=== PATIENT | male | born 1965 | race Caucasian/White ===

== ENCOUNTER → 2017-02-20 | Outpatient (CLI) | payer OTHER ==
[~2017-02-20] VITALS: Ht 185.4 cm; Wt 88.5 kg
[~2017-02-20] MED LIST: ATIVAN1 MG PO; KEPPRA 500 MG500 M2 PO; LANSOPRAZOLE30 MG PO; LEVAQUIN 500 M500 M4 PO; LEVAQUIN 500 M500 MG PO; MIRALAX17 GM PO; NEXIUM40 MG PO; SINGULAIR 10 MG10 M1 PO; TYLENOL325 MG PO; UNICOMPLEX M TA1 TA1 PO
--- NOTE | ~2017-02-20 | P ---
[facility] [place] [place] [address] PROCEDURE REPORT Name: SHARON ETIENNE [id number] Admission: 02/20/17 Attend Phys: Alexis Gill Discharge: Date of : 69 Report #: [id number] THIS REPORT FOR: //name// CC: Alexis Ramirez MD DATE OF SERVICE: 02/20/2017 PROCEDURE PERFORMED: Upper endoscopy with PEG removal and replacement. 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 He is cared for by his mother and aunt, they have noticed increasing drainage around the PEG site itself; therefore, plan is for EGD with PEG replacement. PROCEDURE IN DETAIL: The risks and benefits of the procedure were explained to the patient's mother, those risks including but not limited to bleeding, perforation, the risk of sedation. He understood these risks and gave informed consent. Sedation was given using propofol per anesthesia. Next, using a standard SmartHubn upper endoscope, the scope was placed in the patient's mouth and advanced under direct vision through the esophagus, stomach and into the second portion of the duodenum. The esophagus was normal throughout. The GE junction was normal. Overall, the gastric mucosa was normal. The PEG tube bumper was noted to be in good position in the mid body of the stomach. The pylorus was normal and patent. The duodenal bulb, first and second portion were all normal. The scope was then brought back into the patient's stomach and the old PEG was removed through the peg fistula with traction. Next, a blue guidewire was inserted through the peg fistula and grasped with a snare through the endoscope and then the scope was brought back up to the patient's mouth. A new 24-Bengali PEG tube was secured to the blue guidewire and using a pull technique, it was put into position without difficulty. The scope was reintroduced into the patient's stomach. There was no evidence of bleeding after the PEG tube was placed. The bumper again was in good position. At this point, the scope was then withdrawn. The PEG tube was then secured to the anterior abdominal wall, the procedure was terminated. The patient tolerated the procedure well. IMPRESSION: Normal upper endoscopy status post removal of old PEG tube, replacement with new PEG tube today without difficulty. RECOMMENDATIONS: Okay to start using PEG tube at this time. [facility] [address] [place] [address] PROCEDURE REPORT Name: SHARON ETIENNE Room #: REG [facility] Curtis#: [id number] Admission: 02/20/17 Attend Phys: Alexis Gill Discharge: Date of : 69 Report #: [id number] Thank you for allowing me to participate in his care. By: 1100 1418 Alexis Naranjo MD /luda
== END ==
LOC: GI 08:47
DX: Z43.1 Encounter for attention to gastrostomy (principal); K21.9 Gastro-esophageal reflux disease without esophagitis; R56.9 Unspecified convulsions; Z87.820 Personal history of traumatic brain injury
CPT/HCPCS: 62110; 62900

== ENCOUNTER 2018-02-01 12:32 | Inpatient (IN) | payer OTHER ==
[~2018-02-01] VITALS: Ht 188 cm; Wt 93.0 kg
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
[2018-02-01] MEDS ORDERED: PREVACID30 MG PO (14:42)
[2018-02-01] MEDS ORDERED: KEFLEX500 M1 PO (14:43)
[2018-02-01 16:26] LABS: BE(vivo) 2.8 mmol/L (-2 to +3); HCO3 28.8 mmol/L (22.0-26.0); PCO2 49.1 mmHg (35.0-45.0); PO2 87.6 mmHg (80.0-100.0); pH 7.386 (7.360-7.450); sO2 96.5 % (92.0-98.0)
[2018-02-01 17:13] LABS: URINE BILIRUBIN NEGATIVE (Negative); URINE BLOOD NEGATIVE (Negative); URINE CLARITY CLEAR; URINE COLOR YELLOW; URINE GLUCOSE-RANDOM* NEGATIVE (Negative); URINE KETONES NEGATIVE (Negative); URINE LEUKOCYTES-REFLEX NEGATIVE (Negative); URINE NITRITE-REFLEX NEGATIVE (Negative); URINE PROTEIN (DIPSTICK) NEGATIVE (Negative); URINE SPECIFIC GRAVITY <= 1.005 (1.005-1.035); URINE UROBILINOGEN 0.2 E.U./dl (0.2-1.0)
[2018-02-01 19:04] LABS: HEMATOCRIT 47.2 % (42.0-52.0); HEMOGLOBIN 15.9 gm/dL (14.0-18.0); MCH 31.7 pg (26.0-34.0); MCHC 33.6 g/dL (28.0-37.0); MCV 94.2 fL (80.0-100.0); PLATELET COUNT 546 thou/uL (150-400); RBC 5.01 mil/uL (4.50-6.00); RDW 13.7 % (10.5-14.5); WBC 7.9 thou/uL (4.0-11.0)
[2018-02-01 19:17] LABS: ALBUMIN 2.6 g/dL (3.4-5.0); CALCIUM 9.6 mg/dL (8.5-10.1); CREATININE 0.4 mg/dL (0.7-1.3); MAGNESIUM 2.1 mg/dL (1.8-2.4); POTASSIUM 3.2 mmol/L (3.5-5.1); TOTAL BILIRUBIN 0.3 mg/dL (<0.1-1.0); TOTAL PROTEIN 8.2 g/dL (6.4-8.2)
[2018-02-01 19:28] LABS: ABSOLUTE NEUTROPHILS 5.1 thou/uL (1.4-8.2)
[2018-02-01 19:30] VITALS: BP 100/72
[2018-02-01 23:30] VITALS: BP 100/75
[2018-02-02 03:50] VITALS: BP 100/70; BP 110/70
[2018-02-02 06:48] LABS: HEMATOCRIT 44.7 % (42.0-52.0); HEMOGLOBIN 14.9 gm/dL (14.0-18.0); MCH 31.5 pg (26.0-34.0); MCHC 33.3 g/dL (28.0-37.0); MCV 94.5 fL (80.0-100.0); PLATELET COUNT 571 thou/uL (150-400); RBC 4.73 mil/uL (4.50-6.00); RDW 14.1 % (10.5-14.5); WBC 9.3 thou/uL (4.0-11.0)
[2018-02-02 06:57] LABS: CALCIUM 8.6 mg/dL (8.5-10.1); CREATININE 0.4 mg/dL (0.7-1.3); MAGNESIUM 1.8 mg/dL (1.8-2.4)
[2018-02-02 07:52] VITALS: BP 133/74
[2018-02-02 07:58] LABS: ABSOLUTE NEUTROPHILS 6.9 thou/uL (1.4-8.2); ATYPICAL LYMPHS 1 %
[2018-02-02 12:15] VITALS: BP 137/84
[2018-02-02 12:27] VITALS: BP 106/71
[2018-02-02 15:06] VITALS: BP 107/69
[2018-02-02 19:19] VITALS: BP 94/63
[2018-02-03 03:45] VITALS: BP 109/68
[2018-02-03 08:08] VITALS: BP 104/72
[2018-02-03 08:23] VITALS: BP 104/72
[2018-02-03 11:07] VITALS: BP 124/78
[2018-02-03 15:04] VITALS: BP 117/75
[2018-02-03 18:59] VITALS: BP 125/82
[2018-02-03 23:07] LABS: ADENOVIRUS Negative (Negative); INFLUENZA A Negative (Negative); INFLUENZA B Negative (Negative); METAPNEUMOVIRUS Negative (Negative); PARAINFLUENZA 1 Negative (Negative); PARAINFLUENZA 2 Negative (Negative); PARAINFLUENZA 3 Negative (Negative); RHINOVIRUS Negative (Negative); RSV A Negative (Negative); RSV B Negative (Negative)
[2018-02-04 03:28] VITALS: BP 111/81
[2018-02-04 06:07] LABS: ABSOLUTE NEUTROPHILS 11.2 thou/uL (1.4-8.2); BASOPHILS 0.7 % (0.0-2.0); EOSINOPHILS 2.2 % (0.0-3.0); HEMATOCRIT 46.7 % (42.0-52.0); HEMOGLOBIN 15.5 gm/dL (14.0-18.0); LYMPHOCYTES 10.9 % (24.0-44.0); MCH 31.4 pg (26.0-34.0); MCHC 33.1 g/dL (28.0-37.0); MCV 94.8 fL (80.0-100.0); MONOCYTES 6.2 % (1.0-8.0); PLATELET COUNT 551 thou/uL (150-400); RBC 4.93 mil/uL (4.50-6.00)
[2018-02-04 06:12] LABS: CALCIUM 8.9 mg/dL (8.5-10.1); CREATININE 0.4 mg/dL (0.7-1.3); POTASSIUM 3.7 mmol/L (3.5-5.1)
[2018-02-04 07:05] VITALS: BP 108/69
[2018-02-04 11:10] VITALS: BP 100/71
[2018-02-04 15:55] VITALS: BP 101/71
[2018-02-04 18:58] VITALS: BP 102/77
[2018-02-05 03:22] VITALS: BP 95/67
[2018-02-05 07:15] VITALS: BP 110/69
[2018-02-05 09:51] VITALS: BP 110/69
[2018-02-05 11:12] VITALS: BP 104/65
[2018-02-05] MEDS ORDERED: CEFEPIME 22 GM/100 M IV (11:33)
[2018-02-05] MEDS ORDERED: LEVAQUIN 7750 MG/152 IV (11:33)
== END 2018-02-05 16:01 | disposition home health service (06) | DRG 177 ==
LOC: RAD 12:32 → 3W 14:30
PROVIDERS: Family Medicine; Internal Medicine Pulmonary Disease; Nurse Practitioner
PROC: 05HB33Z Insertion of Infusion Device into Right Basilic Vein, Percutaneous Approach (ICD-10-PCS; principal; 2018-02-01)
DX: J15.1 Pneumonia due to Pseudomonas (principal); G93.40 Encephalopathy, unspecified; J96.10 Chronic respiratory failure, unspecified whether with hypoxia or hypercapnia; R40.3 Persistent vegetative state; K21.9 Gastro-esophageal reflux disease without esophagitis; G40.909 Epilepsy, unspecified, not intractable, without status epilepticus; Z93.0 Tracheostomy status; Z88.5 Allergy status to narcotic agent; Z88.0 Allergy status to penicillin; Z88.2 Allergy status to sulfonamides; Z93.1 Gastrostomy status; Z90.81 Acquired absence of spleen; Z90.49 Acquired absence of other specified parts of digestive tract
CPT/HCPCS: 10779; 27000

== ENCOUNTER → 2018-04-21 | Outpatient (CLI) | payer OTHER ==
[~2018-04-21] MED LIST changes: +CEFEPIME 22 GM/100 M IV; +KEFLEX500 M1 PO; +LEVAQUIN 7750 MG/152 IV; +PREVACID30 MG PO
== END ==
LOC: RAD 12:45
DX: J91.8 Pleural effusion in other conditions classified elsewhere (principal)

== ENCOUNTER → 2018-10-13 | Outpatient (CLI) | payer OTHER ==
--- NOTE | ~2018-10-13 | EKG ---
[address] [address] ELECTROCARDIOGRAM REPORT Name: SHARON ETIENNE Room #: REG CL Curtis#: [id number] Admission: 10/13/18 Attend Phys: Sami Ramirez MD Discharge: Date of : 69 Report #: [id number] THIS REPORT FOR: //name// [facility] Test Date: 2018-10-13 Test Time: 11:50:04 Pat Name: SHARON ETIENNE Department: Room: Gender: Tuber Machine Operator: Nancy CONTRERAS : 1965 Requested By: Sami Ramirez Order Number: [id number] MD: Sanjiv Moe Measurements Intervals [place] Rate: 77 P: 39 MA: 195 QRS: -21 QRSD: 94 T: 103 QT: 389 QTc: 441 Interpretive Statements Sinus rhythm Borderline left axis deviation Compared to ECG 03/19/2015 13:48:40 Electronically Signed On 10-13-2018 16:18:52 CUSTOMER EXPERIENCE ANALYST by Sanjiv Moe [email or web address] <ELECTRONICALLY SIGNED> By: Sanjiv Moe MD 10/13/18 1618 1150 1150 Sanjiv Moe MD /ABRAHAM
== END ==
LOC: RAD 09:04
DX: R91.8 Other nonspecific abnormal finding of lung field (principal); R40.3 Persistent vegetative state; Z93.0 Tracheostomy status

== ENCOUNTER 2018-10-16 13:16 | Emergency (ER) | payer OTHER ==
[~2018-10-16] VITALS: Ht 182.9 cm; Wt 102.1 kg
--- NOTE | ~2018-10-16 | EKG ---
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: KRISTAN : 1965 Requested By: Amalia Murcia Order Number: [id number] MD: Kwame Gandhi Measurements Intervals [place] Rate: 93 P: 33 ME: 187 QRS: -19 QRSD: 97 T: 152 QT: 319 QTc: 397 Interpretive Statements Sinus rhythm Borderline left axis deviation Nonspecific T abnrm, anterolateral leads Baseline wander in lead(s) V1 Compared to ECG 10/13/2018 11:50:04 No significant changes Electronically Signed On 10-17-2018 10:22:12 COATING MACHINE HELPER by Kwame Gandhi [email or web address] <ELECTRONICALLY SIGNED> By: Kwame Gandhi MD 10/17/18 1022 1342 41 Kwame Gandhi MD /ABRAHAM
[2018-10-16 15:20] LABS: BE(vivo) -0.4 mmol/L (-2 to +3); HCO3 24.9 mmol/L (22.0-26.0); PO2 VENOUS 55.5 mmHg (35.0-45.0)
[2018-10-16 15:21] LABS: HEMATOCRIT 45.8 % (42.0-52.0); HEMOGLOBIN 15.7 gm/dL (14.0-18.0); MCH 33.2 pg (26.0-34.0); MCHC 34.4 g/dL (28.0-37.0); MCV 96.6 fL (80.0-100.0); PLATELET COUNT 274 thou/uL (150-400); RBC 4.74 mil/uL (4.50-6.00); RDW 13.6 % (10.5-14.5)
[2018-10-16 15:29] LABS: ANION GAP 2 mmol/L (7-16); BUN 9 mg/dL (7-18); CALCIUM 9.4 mg/dL (8.5-10.1); CHLORIDE 95 mmol/L (98-107); CO2 31 mmol/L (21-32); CREATININE 0.5 mg/dL (0.7-1.3); GLUCOSE 94 mg/dL (74-106); POTASSIUM 3.7 mmol/L (3.5-5.1); SODIUM 128 mmol/L (136-145)
[2018-10-16 15:38] LABS: LIPASE 59 U/L (73-393); SGOT 16 U/L (15-37); SGPT 31 U/L (30-65); TOTAL BILIRUBIN 1.3 mg/dL (<0.1-1.0); TOTAL PROTEIN 8.1 g/dL (6.4-8.2); TROPONIN-I <0.06 ng/mL (<0.06)
[2018-10-16 16:03] LABS: ABSOLUTE NEUTROPHILS 7.6 thou/uL (1.4-8.2); ANISOCYTOSIS 1+
[2018-10-16 16:44] LABS: URINE BILIRUBIN NEGATIVE (Negative); URINE BLOOD NEGATIVE (Negative); URINE CLARITY CLEAR; URINE COLOR YELLOW; URINE GLUCOSE-RANDOM* NEGATIVE (Negative); URINE KETONES NEGATIVE (Negative); URINE LEUKOCYTES-REFLEX NEGATIVE (Negative); URINE PROTEIN (DIPSTICK) NEGATIVE (Negative); URINE UROBILINOGEN 0.2 E.U./dl (0.2-1.0)
[2018-10-16 16:49] LABS: URINE NITRITE-REFLEX POSITIVE (Negative)
[2018-10-16 16:55] LABS: CASTS None Seen /LPF (None Seen); SQUAMOUS 0-3 Few /LPF (0-3)
[2018-10-16 16:56] LABS: CALCIUM OXALATE 0-3 Few /LPF (None Seen); URINE RBC None Seen /HPF (0-2); URINE WBC-REFLEX 0-5 Rare /HPF (0-5)
[2018-10-16] MEDS ORDERED: LEVAQUIN 500 M500 MG PO (17:11)
[2018-10-16 21:39] VITALS: BP 129/78
== END 2018-10-16 18:55 | disposition home or self-care (01) ==
LOC: ER 13:16
PROVIDERS: Emergency Medicine; Nurse Practitioner Family
DX: N39.0 Urinary tract infection, site not specified (principal); K21.9 Gastro-esophageal reflux disease without esophagitis; Z88.5 Allergy status to narcotic agent; Z88.0 Allergy status to penicillin; Z88.2 Allergy status to sulfonamides; Z90.49 Acquired absence of other specified parts of digestive tract; Z90.81 Acquired absence of spleen

== ENCOUNTER → 2018-10-26 | Outpatient (CLI) | payer OTHER ==
--- NOTE | ~2018-10-26 | 2DMMODE ---
[facility] [address] [place] [address] 2 D/M-MODE ECHOCARDIOGRAM Name: SHARON ETIENNE Room #: REG [facility]#: [id number] Admission: 10/26/18 Attend Phys: Nato Melo Discharge: Date of : 69 Date of Service: 10/26/18 1641 Report #: [id number] THIS REPORT FOR: //name// APPROVED REPORT Study performed: 10/26/2018 15:11:40 EXAM: Comprehensive 2D, Doppler, and color-flow Echocardiogram Patient Location: Out-Patient Status: routine BSA: 2.15 HR: 77 bpm Rhythm: NSR Other Information Study Quality: Fair/ off axis windows. Not all measurements obtainable. Technically limited study due to patient confined to wheelchair. Indications Abnormal EKG. Hx: Tracheostomy, persistent vegetative state. 2D Dimensions IVSd: 13.59 (7-11mm) LVOT Diam: 22.94 (18-24mm) LVDd: 48.85 mm PWd: 13.42 (7-11mm) Ascending Ao: 34.97 (22-36mm) LVDs: 28.20 (25-40mm) Aortic Root: 37.26 mm Aortic Valve AoV Peak Prabhu.: 1.04 m/s AO Peak Gr.: 4.35 mmHg LVOT Max P.08 mmHg LVOT Max V: 0.72 m/s MIREYA Vmax: 2.86 cm2 Mitral Valve E/A Ratio: 1.1 MV Decel. Time: 283.25 ms MV E Max Prabhu.: 0.72 m/s MV A Prabhu.: 0.68 m/s MV PHT: 82.14 ms IVRT: 83.04 ms [facility] [address] [place] [address] 2 D/M-MODE ECHOCARDIOGRAM Name: SHARON ETIENNE Room #: REG [facility]#: [id number] Admission: 10/26/18 Attend Phys: Nato Melo Discharge: Date of : 69 Date of Service: 10/26/18 1641 Report #: [id number] Pulmonary Valve PV Peak Prabhu.: 1.09 m/s PV Peak Gr.: 4.71 mmHg Tricuspid Valve TR Peak Prabhu.: 2.22 m/s TR Peak Gr.: 19.79 mmHg Left Ventricle The left ventricle is normal size. There is normal LV segmental wall motion. Mild concentric left ventricular hypertrophy. Left ventricular systolic function is normal. LVEF is 60-65%. This study is not technically sufficient to allow evaluation of the LV diastolic function. Right Ventricle The right ventricle is normal size. The right ventricular systolic function is normal. Atria The left atrium size is normal. The right atrium size is normal. Aortic Valve The aortic valve is normal in structure. Trace aortic regurgitation. There is no aortic valvular stenosis. Mitral Valve The mitral valve is normal in structure. There is no mitral valve regurgitation noted. No evidence of mitral valve stenosis. Tricuspid Valve The tricuspid valve is normal in structure. Trace tricuspid regurgitation. Estimated PAP is 20mmHg plus the right atrial pressure. Pulmonic Valve The pulmonary valve is normal in structure. There is no pulmonic valvular regurgitation. Great Vessels The aortic root is normal in size. The ascending aorta is normal in size. The inferior vena cava is not well visualized. Pericardium [facility] [address] [place] [address] 2 D/M-MODE ECHOCARDIOGRAM Name: SHARON ETIENNE Room #: REG [facility] [id number] Admission: 10/26/18 Attend Phys: Nato Melo Discharge: Date of : 69 Date of Service: 10/26/181640 Report #: [id number] There is no pericardial effusion. <Conclusion> The left ventricle is normal size. LVEF is 60-65%. The aortic valve is normal in structure. Trace aortic regurgitation. The mitral valve is normal in structure. The tricuspid valve is normal in structure. Trace tricuspid regurgitation. Estimated PAP is 20mmHg plus the right atrial pressure. The pulmonary valve is normal in structure. There is no pericardial effusion. <ELECTRONICALLY SIGNED> By: Nato Quiles MD 10/26/18 164 40 1641 Nato Quiles MD /INF
== END ==
LOC: CV 08:05
DX: R94.31 Abnormal electrocardiogram [ECG] [EKG] (principal)

== ENCOUNTER → 2019-02-02 | Outpatient (CLI) | payer OTHER | LOC: RAD 12:46 | DX: J98.4 Other disorders of lung (principal); R09.89 Other specified symptoms and signs involving the circulatory and respiratory systems ==

== ENCOUNTER → 2019-02-17 | Outpatient (CLI) | payer OTHER ==
[~2019-02-17] MED LIST changes: +ALBUTEROL2.5 MG/31 INH; +LASIX 20 MG TAB20 MG PO; +PULMICORT0.5 MG/22 INH
== END ==
LOC: RAD 12:08
DX: R09.89 Other specified symptoms and signs involving the circulatory and respiratory systems (principal); R91.8 Other nonspecific abnormal finding of lung field; Z88.5 Allergy status to narcotic agent; Z88.2 Allergy status to sulfonamides; Z88.0 Allergy status to penicillin; Z93.0 Tracheostomy status

== ENCOUNTER 2019-02-21 07:45 | Inpatient (IN) | payer OTHER ==
[2019-02-21] VITALS (7 sets, daily range): BP systolic 102–132; BP diastolic 64–84
[~2019-02-21] VITALS: Ht 185.4 cm; Wt 102.1 kg
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
[~2019-02-21 07:45] MED LIST changes: -ALBUTEROL2.5 MG/31 INH; -LASIX 20 MG TAB20 MG PO; -PULMICORT0.5 MG/22 INH
[2019-02-21] MEDS ORDERED: LASIX 20 MG TAB20 MG PO (07:58)
[2019-02-21 08:08] LABS: URINE BILIRUBIN 3+ (Negative); URINE BLOOD NEGATIVE (Negative); URINE CLARITY CLEAR; URINE GLUCOSE-RANDOM* NEGATIVE (Negative); URINE KETONES TRACE (Negative); URINE LEUKOCYTES-REFLEX TRACE (Negative); URINE PROTEIN (DIPSTICK) 2+ (Negative); URINE SPECIFIC GRAVITY 1.015 (1.005-1.035)
[2019-02-21 08:14] LABS: HEMATOCRIT 50.4 % (42.0-52.0); HEMOGLOBIN 17.2 gm/dL (14.0-18.0); MCHC 34.1 g/dL (28.0-37.0); MCV 90.9 fL (80.0-100.0); PLATELET COUNT 266 thou/uL (150-400); RBC 5.54 mil/uL (4.50-6.00); RDW 15.5 % (10.5-14.5); WBC 26.6 thou/uL (4.0-11.0)
[2019-02-21 08:24] LABS: URINE NITRITE-REFLEX POSITIVE (Negative)
--- NOTE | 2019-02-21 08:24 | NUR ---
ADDISON IN LAB IS AT BEDSIDE
--- NOTE | 2019-02-21 08:24 | NUR ---
RT AT BEDSIDE
[2019-02-21 08:25] LABS: ICTOTEST (BILI CONFIRMATORY) Positive (Negative); URINE COLOR ORANGE
[2019-02-21 08:33] LABS: BACTERIA-REFLEX 1-9 Few /HPF (None Seen); COARSE GRANULAR CASTS 0-3 Few /LPF (None Seen); CRYSTALS None Seen /LPF (None Seen); SQUAMOUS None Seen /LPF (0-3); URINE RBC None Seen /HPF (0-2); URINE WBC-REFLEX 0-5 Rare /HPF (0-5)
[2019-02-21 08:55] LABS: ALBUMIN 2.7 g/dL (3.4-5.0); CALCIUM 8.5 mg/dL (8.5-10.1); CREATININE 0.4 mg/dL (0.7-1.3); POTASSIUM 3.7 mmol/L (3.5-5.1); TOTAL BILIRUBIN 8.6 mg/dL (<0.1-1.0); TOTAL PROTEIN 7.9 g/dL (6.4-8.2)
[2019-02-21 09:12] LABS: ABSOLUTE NEUTROPHILS 22.3 thou/uL (1.4-8.2); PLATELET ESTIMATE NORMAL
--- NOTE | 2019-02-21 09:36 | NUR ---
IV TEAM TEXTED FOR MIDLINE ACCESS
--- NOTE | 2019-02-21 10:50 | NUR ---
ATTEMPTED TO GIVE REPORT TO NATASHA VIA CARLENE ABDULLAHI; UNABLE TO HOLD ANY LONGER WILL CALL BACK JUVENCIO
--- NOTE | 2019-02-21 11:03 | NUR ---
CALLED CCU TO GIVE REPORT; ASKED FOR NATASHA VIA THALIA; SHE DID NOT ANSWER HER PHONE; THALIA WILL HAVE HER CALL ME BACK
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
[2019-02-21] MEDS ORDERED: ALBUTEROL2.5 MG/31 INH (13:13)
[2019-02-21] MEDS ORDERED: PULMICORT0.5 MG/22 INH (13:14)
--- NOTE | 2019-02-21 18:47 | NUR ---
VSS REMAINS NSR ST ON MONITER. LUNGS REMAIN COURSE, TRACH SHIELD ON FOR HUMIDIFIED AIR, SAT 35% 98%, REMAINS NON RESPONSIVE AT HOME, EYES OPEN OCCASIONALLY BUT NOT ON CAMMAND, DOES NOT FOLLOW COMMANDS. GRAPHITE DISK ASSEMBLER/ MOM AT BEDSIDE T MAX TEMP TODAY 100.2 AX WILL CONTINUE TO MONITER AND CARE FOR PTPER PLAN OF CARE
[2019-02-22 04:33] LABS: HEMATOCRIT 43.6 % (42.0-52.0); MCH 30.7 pg (26.0-34.0); MCHC 33.3 g/dL (28.0-37.0); RBC 4.74 mil/uL (4.50-6.00); RDW 15.2 % (10.5-14.5)
[2019-02-22 04:47] LABS: HEMOGLOBIN 14.5 gm/dL (14.0-18.0)
[2019-02-22 05:07] LABS: ALBUMIN 2.3 g/dL (3.4-5.0); CALCIUM 8.3 mg/dL (8.5-10.1); CREATININE 0.4 mg/dL (0.7-1.3); POTASSIUM 3.2 mmol/L (3.5-5.1); TOTAL BILIRUBIN 6.2 mg/dL (<0.1-1.0); TOTAL PROTEIN 7.2 g/dL (6.4-8.2)
[2019-02-22 05:09] VITALS: BP 106/72
[2019-02-22 07:50] VITALS: BP 110/69
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
[2019-02-22 12:13] VITALS: BP 111/70
[2019-02-22 17:46] VITALS: BP 104/71
--- NOTE | 2019-02-22 18:12 | NUR ---
RECEIVED PT FROM RECOVERY AFTER ATTEMPTED ERCP. VSS, LUNGS COURSE,REMAIN ON TRACH SHIELD WITH 35% O2, O2 SAT 98%, PT STILL WITH COPIOUS AMTS OF YELLOW SPUTUM, INLINE SUCTION NOW IN WITH NEW SHILEY TRACH X6 CUFFLESS, WITH DISPOSABLE INNER CANULA. PT REMAINS UNRESSONSIVE PRIOR TO PROCEDURE, CONDOM CATH INTACT REMAINS YELLOW URINE. WILL CONTINUE TO MONITER AND CARE FOR PT PER PLAN OF CARE
[2019-02-22 20:28] VITALS: BP 93/61
[2019-02-22 23:40] VITALS: BP 93/61
[2019-02-23 00:06] VITALS: BP 111/68
--- NOTE | 2019-02-23 03:20 | NUR ---
ASSUMED PT CARE AT 1900. PT SLEEPING, UNABLE TO FOLLOW COMMANDS OR ANSWER UESTIONS. MOTHER AT BEDSIDE AND STATES ITS HIS BASELINE. VITAL SIGNS STABLE, ASSESSMENT CHARTED. UNABLE TO VERBALIZE PAIN BUT SEEMED COMFORTABLE/PAIN FREE. Q2HR TURNS COMPLETED, SUCTIONING NEEDED. SUPPOSITORY GIVEN PER MOM'S REQUEST. CLOSE TO NURSING STATION, FREQUENT ROUNDING. NPO MAINTAINED, MOUTH CARE PROVIDED. FOLLOWING NURSING PLAN OF CARE. WILL CONTINUE TO MONITOR.
[2019-02-23 05:43] VITALS: BP 101/56
[2019-02-23 05:50] LABS: HEMATOCRIT 40.3 % (42.0-52.0); HEMOGLOBIN 13.2 gm/dL (14.0-18.0); MCH 30.6 pg (26.0-34.0); MCHC 32.9 g/dL (28.0-37.0); MCV 93.1 fL (80.0-100.0); RBC 4.32 mil/uL (4.50-6.00); RDW 15.1 % (10.5-14.5); WBC 10.7 thou/uL (4.0-11.0)
[2019-02-23 06:33] LABS: ALBUMIN 2.1 g/dL (3.4-5.0); CALCIUM 8.2 mg/dL (8.5-10.1); CREATININE 0.3 mg/dL (0.7-1.3); TOTAL BILIRUBIN 4.2 mg/dL (<0.1-1.0); TOTAL PROTEIN 6.5 g/dL (6.4-8.2)
[2019-02-23 09:07] LABS: INR 1.3; PROTIME 13.3 Seconds (9.3-11.4)
[2019-02-23 11:00] VITALS: BP 108/72
[2019-02-23 15:06] VITALS: BP 99/57
--- NOTE | 2019-02-23 17:33 | NUR ---
ASSUMED CARE OF PT AT SHIFT CHANGE. ASSESSMENTS CHARTED. IV MEDS GIVEN PER JAN, PT REMAINS NPO PER PROVIDER ORDERS. PT UNABLE TO VOICE, AWAKE, BUT NO RESPONSIVE. MOTHER VERY INVOLVED WITH CARE AND AT BEDSIDE THROUGHOUT DAY. VSS, AFEBRILE, O2 SATS WNL WITH T TUBE CONNECTED TO TRACH. SUCTIONED BY RESPIRATORY AND NEEDED. PROCEDURE SCHEDULED TODAY POSTPONED PER GI. FREQUENT CHECKS ON PT, IN NO APPARENT PAIN OR DISTRESS. WILL CONTINUE TO MONITOR AND FOLLOW POC.
[2019-02-23 19:34] VITALS: BP 84/55
[2019-02-23 22:21] VITALS: BP 84/55
[2019-02-24] VITALS (7 sets, daily range): BP systolic 85–100; BP diastolic 54–63
--- NOTE | 2019-02-24 04:08 | NUR ---
ASSUMED PT CARE AT 1900. PT UNABLE TO ANSWER QUESTIONS. BASELINE MOM MENTIONED. MOTHER AT BEDSIDE THROUGH OUT THE NIGHT. VITAL SIGNS STABLE, ASSESSMENT CHARTED. SUNCTIONING NEEDED. Q2-3 TURNS COMPLETED. BATH PROVIDED. RESTED WELL THROUGH THE NIGHT. A FEW COUGHING SPELLS WITH CONGESTION. SUNCTIONING HELPED. PROGRESSING TOWARD PLAN OF CARE. WILL CONTINUE TO MONITOR.
[2019-02-24 05:49] LABS: HEMATOCRIT 39.9 % (42.0-52.0); HEMOGLOBIN 13.5 gm/dL (14.0-18.0); MCHC 33.9 g/dL (28.0-37.0); MCV 91.6 fL (80.0-100.0); RBC 4.36 mil/uL (4.50-6.00); RDW 15.3 % (10.5-14.5); WBC 6.7 thou/uL (4.0-11.0)
[2019-02-24 06:00] LABS: ALBUMIN 2.1 g/dL (3.4-5.0); CREATININE 0.3 mg/dL (0.7-1.3); POTASSIUM 3.6 mmol/L (3.5-5.1); TOTAL BILIRUBIN 2.7 mg/dL (<0.1-1.0); TOTAL PROTEIN 6.5 g/dL (6.4-8.2)
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
--- NOTE | 2019-02-24 15:22 | NUR ---
FAXED CLINICAL UPDATE TO [facility]. HAS BEEN ON SERVICE WITH THEM SALON SUPERVISOR. DCP TO FOLLOW.
--- NOTE | 2019-02-24 18:14 | NUR ---
ASSUMED CARE OF PT AT SHIFT CHANGE. ASSESSMENTS CHARTED. MEDS GIVEN PER JAN. PT ALERT AND ORIENTED. VSS- BP RUN LOW, MAP >65. PT AWAKE THROUGHOUT DAY. NON VERBAL, MOTHER AT BEDSIDE THROUGHOUT DAY. PT IN NO APPARENT PAIN OR DISTRESS. FREQUENT CHECKS PERFORMED ON PT. AT APPROX 1615 PT SOUNDED MORE COARSE UPON LUNG ASSESSMENT, BROWN WALTERS WAS ASKED TO LISTEN/ASSESS, SUCTION PERFORMED, BLOCKAGE NOTICED WHILE SUCTIONING, ABLE TO SUCTION LARGE AMOUNT OF MUCUS. PT DESATTED TO HIGH 80S, RECOVERED AFTER SUCTIONING FINISHED. PT ABLE TO COUGH AND GET MORE SECRETIONS, SUCTIONING ASSISTANCE PROVIDED. PT CURRENTLY RESTING IN BED IN NO DISTRESS, O2 SATS WNL. CONTINUING TO MONITOR AND FOLLOW POC.
[2019-02-25 02:43] LABS: HEMATOCRIT 40.5 % (42.0-52.0); HEMOGLOBIN 13.7 gm/dL (14.0-18.0); MCH 30.8 pg (26.0-34.0); MCHC 33.7 g/dL (28.0-37.0); MCV 91.4 fL (80.0-100.0); RBC 4.43 mil/uL (4.50-6.00); RDW 15.3 % (10.5-14.5); WBC 6.3 thou/uL (4.0-11.0)
[2019-02-25 02:57] LABS: ALBUMIN 2.1 g/dL (3.4-5.0); DIRECT BILIRUBIN 1.3 mg/dL (<0.1-0.3); TOTAL BILIRUBIN 1.9 mg/dL (<0.1-1.0); TOTAL PROTEIN 6.5 g/dL (6.4-8.2)
--- NOTE | 2019-02-25 03:55 | NUR ---
ASSUMED PT CARE AT 1900. PT MORE AWAKE. VITAL SIGNS STABLE, ASSESSMENT CHARTED. SUCTIONING NEEDED. TURNS TOLERATED. RESTED WELL THROUGH THE NIGHT. PROGRESSING TOWARD PLAN OF CARE. WILL CONTINUE TO MONITOR.
[2019-02-25 04:52] VITALS: BP 102/55
[2019-02-25 08:53] VITALS: BP 98/62
[2019-02-25 12:00] VITALS: BP 91/62
[2019-02-25 12:36] VITALS: BP 107/57
--- NOTE | 2019-02-25 14:48 | NUR ---
NOTIFIED ROSEMARIE IN ADM. AT [facility] THAT PT. POSS. WILL DC OVER THE WEEKEND. IF PT DISCHARGES FAX DC ORDERS/SUMMARY TO [phone] AND CALL [phone] LET THEM KNOW PT. DISCHARGED.
--- NOTE | 2019-02-25 16:06 | NUR ---
VASCULAR TEAM ROUNDING, CENTRAL LINE REMAINS APPROPRIATE DUE TO LACK OF VESSELS,PT IS CONTRACTED , IV FLUIDS AND ANTIBIOTICS CONTINUE.
--- NOTE | 2019-02-25 16:36 | NUR ---
PT CARE ASSUMED APPROX 0700. PT NONRESPONSIVE AT BASELINE. OPENS EYES SPONTANEOUSLY AND LOCALIZES TO STIMULI TO FACE. PT A QUAD, NO PURPOSEFUL MOVEMENT IN ANY EXTREMITIES. PT MOTHER AT BEDSIDE MOST OF SHIFT AND HAS REFUSED TURNS FOR THE PT. DRs ARE AWARE. VSS. TUBE FEEDING RESTARTED PER TITRATION ORDER. PT CANNOT ADVANCE AT THIS TIME. GI RADIO FREQUENCY ENGINEER GAVE ORDERS TO RESTART TUBE FEEDING AT GOAL RATE IN THE AM. IVF REMAIN IN POC. IV ABT TRANSITIONED TO PT. PT READIED FOR POTENTIAL DISCHARGE IN AM. CERTIFIED REGISTERED NURSE PRACTITIONER REVIEWED WITH THIS NURSE. MOTHER NO LONGER AT BEDSIDE BUT PRIOR TO LEAVING DENIES QUESTIONS AND CONCERS REGARDING POC AND DISCHARGE. NO DISTRESS NOTED.
[2019-02-25 17:00] VITALS: BP 105/53
[2019-02-25 20:11] VITALS: BP 99/63
--- NOTE | 2019-02-25 23:40 | NUR ---
PT RESTING IN NO ACUTE DISTRESS.VSS.NO CONCERNS AT THIS TIME.
--- NOTE | 2019-02-26 03:48 | NUR ---
RECEIVED PT'S CARE AROUND 2333; PT. ON BED; NO RELATIVE AT THE BED SIDE; BY REPORT, PT'S MOTHER REFUSED TURNING; PT. RESTING DURING MIDNIGHT ASSESSMENT; NO APPARENT PAIN; O2 SAT ABOVE 95%; FREQUENTLY ROUNDING; ASSESSMENT CHARGED; FOLLOWING POC; WILL PASS ON REPORT.
[2019-02-26 04:26] VITALS: BP 100/66
[2019-02-26 07:30] VITALS: BP 100/58
[2019-02-26 11:50] VITALS: BP 124/70
[2019-02-26] MEDS ORDERED: CIPRO500 MG PER TUBE (11:51)
[2019-02-26 12:26] VITALS: BP 91/62
--- NOTE | 2019-02-26 18:14 | NUR ---
ASSUMED CARE OF PATIENT AT 0700. ASSESSMENT CHARTED. MOTHER AT BEDSIDE FOR ENTIRETY OF DAY. 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 ALL MEDS AND FEEDING GIVEN THROUGH PEG TUBE. PATIENT HAS A CONDOM CATHETER IN PLACE WHICH IS ONLY TOUCHED BY THE MOTHER, PER THE MOTHER. PATIENT'S BLOOD SUGARS CHECKED Q 6 HOURS. PATIENT D/C PER HOSPITALIST. TELE AND IV DISCONTINUED. PRESSURE HELD ON RIGHT JUGULAR FOR 5 MINUTES AND TIP INTACT. PATIENT [facility] AT 1245 TO HIS HOME WHERE HE IS CARED FOR BY HIS MOTHER AND AUNT. PATIENT'S MOTHER STATES THAT THE PATIENT HAS IMPROVED GREATLY FROM THE TIME HE WAS ADMITTED. ALL PAPERWORK FAXED TO [facility].
--- NOTE | 2019-02-28 14:10 | EEG ---
[facility] [place] [address] [place] [address] ELECTROENCEPHALOGRAM Name: SHARON ETIENNE Room #: 217-P [facility] IN M.R.#: [id number] ������������������ Admission: 02/21/19 ������������������ Attend Phys: Suki Duran MD Discharge: 02/26/19 ������������������ Date of : 69 Report #: [id number] ����������������������������������������������������������������� [id number] THIS REPORT FOR: //name// CC: Suki Ramirez DATE OF SERVICE: 02/21/2019 This patient is being evaluated for the possibility of seizure. EEG was done by placing the electrode by standard 10-20 system of electrode placement. Both referential and sequential montages were used for recording. Background activity in this patient's EEG is about 8 Hz and 30 microvolts. Background activity is slow throughout the record. Photic stimulation is unremarkable. IMPRESSION: This patient's electroencephalogram does not demonstrate any active epileptiform activity. However, the electroencephalogram is slow and poorly formed. There is a nonspecific abnormality, which can occur with encephalopathy, effect of psychotropic medication, dementia, etc. It might be mentioned that electroencephalogram can be normal in a patient with seizure disorder in a significant percentage of the patients. If clinical doubt continues to exist about seizures, then a trial with anticonvulsants can be done. Electroencephalogram still has a lot of artifact and sometime, it looks like there may be some epileptiform activity in the right frontal area. However, the patient also had apparently craniotomy there and that can give rise to breach rhythm. Thank you very much for this referral. ���������������������������������������� <ELECTRONICALLY SIGNED> ���������������������������������������� By: Vu Wiley MD ��������������������������������������������� 02/28/19 1410 1847 99 Vu Wiley MD /nt
== END 2019-02-26 13:26 | disposition home health service (06) | DRG 871 ==
LOC: ER 07:45 → EROBS 09:32 → 2N 09:32
PROVIDERS: Emergency Medicine; Hospitalist; Internal Medicine Gastroenterology; Radiology Vascular & Interventional Radiology; ADMIT Internal Medicine
PROC: 0FJB8ZZ Inspection of Hepatobiliary Duct, Via Natural or Artificial Opening Endoscopic (ICD-10-PCS; principal; 2019-02-22)
PROC: 0DJ08ZZ Inspection of Upper Intestinal Tract, Via Natural or Artificial Opening Endoscopic (ICD-10-PCS; principal; 2019-02-22)
DX: A41.9 Sepsis, unspecified organism (principal); K85.90 Acute pancreatitis without necrosis or infection, unspecified; J18.9 Pneumonia, unspecified organism; K83.1 Obstruction of bile duct; G82.50 Quadriplegia, unspecified; J96.20 Acute and chronic respiratory failure, unspecified whether with hypoxia or hypercapnia; E46 Unspecified protein-calorie malnutrition; G40.209 Localization-related (focal) (partial) symptomatic epilepsy and epileptic syndromes with complex partial seizures, not intractable, without status epilepticus; K22.10 Ulcer of esophagus without bleeding; N39.0 Urinary tract infection, site not specified; K83.09 Other cholangitis; E66.9 Obesity, unspecified; E87.6 Hypokalemia; K21.0 Gastro-esophageal reflux disease with esophagitis; K29.70 Gastritis, unspecified, without bleeding; K29.80 Duodenitis without bleeding; R65.20 Severe sepsis without septic shock; Z87.11 Personal history of peptic ulcer disease; Z68.29 Body mass index [BMI] 29.0-29.9, adult; Z87.820 Personal history of traumatic brain injury; Z98.2 Presence of cerebrospinal fluid drainage device; Z93.0 Tracheostomy status; Z90.49 Acquired absence of other specified parts of digestive tract; Z90.81 Acquired absence of spleen; Z93.1 Gastrostomy status; Z79.899 Other long term (current) drug therapy; Z88.5 Allergy status to narcotic agent; Z88.0 Allergy status to penicillin; Z88.2 Allergy status to sulfonamides
CPT/HCPCS: 10081; 62110; 62900; 70005

== ENCOUNTER 2019-09-09 15:56 | Inpatient (IN) | payer OTHER ==
[~2019-09-09] VITALS: Ht 185.4 cm; Wt 100.7 kg
[2019-09-09 15:56] VITALS: BP 115/68
[~2019-09-09 15:56] MED LIST changes: +ALBUTEROL2.5 MG/31 INH; +CIPRO500 MG PER TUBE; +LASIX 20 MG TAB20 MG PO; +PULMICORT0.5 MG/22 INH
[2019-09-09 17:11] VITALS: BP 106/66; BP 111/61; BP 113/63; BP 114/61; BP 97/56
[2019-09-09 17:16] LABS: HEMATOCRIT 44.5 % (42.0-52.0); HEMOGLOBIN 14.6 gm/dL (14.0-18.0); MCH 31.9 pg (26.0-34.0); MCHC 32.9 g/dL (28.0-37.0); MCV 97.1 fL (80.0-100.0); RBC 4.58 mil/uL (4.50-6.00); RDW 14.1 % (10.5-14.5); WBC 13.2 thou/uL (4.0-11.0)
[2019-09-09 17:27] LABS: CALCIUM 8.9 mg/dL (8.5-10.1); CREATININE 0.4 mg/dL (0.7-1.3); POTASSIUM 3.8 mmol/L (3.5-5.1)
[2019-09-09 17:29] LABS: APTT 29.4 Seconds (24.5-32.8); INR 1.1; PROTIME 11.2 Seconds (9.3-11.4)
[2019-09-09 18:07] LABS: ALBUMIN 3.1 g/dL (3.4-5.0); DIRECT BILIRUBIN 0.2 mg/dL (<0.1-0.3); TOTAL BILIRUBIN 0.8 mg/dL (<0.1-1.0); TOTAL PROTEIN 7.3 g/dL (6.4-8.2)
[2019-09-09 19:23] VITALS: BP 103/53; BP 80/53; BP 85/55; BP 92/54; BP 93/53; BP 95/54
[2019-09-09 19:47] LABS: BE(vivo) 0.5 mmol/L (-2 to +3); HCO3 24.2 mmol/L (22.0-26.0); PO2 328.7 mmHg (80.0-100.0); pH 7.445 (7.360-7.450); sO2 99.8 % (92.0-98.0)
[2019-09-09 20:06] LABS: HEMATOCRIT 41.6 % (42.0-52.0); HEMOGLOBIN 13.8 gm/dL (14.0-18.0); MCH 32.2 pg (26.0-34.0); MCHC 33.3 g/dL (28.0-37.0); MCV 96.9 fL (80.0-100.0); RBC 4.29 mil/uL (4.50-6.00); RDW 13.8 % (10.5-14.5); WBC 9.8 thou/uL (4.0-11.0)
--- NOTE | 2019-09-09 20:34 | NUR ---
RETURNED UNUSED VERSED TO [facility] IN PHARMACY.
[2019-09-09 23:58] VITALS: BP 94/59
[2019-09-10] VITALS (98 sets, daily range): BP systolic 85–114; BP diastolic 46–71
--- NOTE | 2019-09-10 | NUR ---
Received this pt from IR around 2350 S/P embolization. He appears sedated with propofol and on vent. Trach site with some dried blood but no active bleeding indicates. SB with first degree AVB on monitor,on low dose of levophed gtt due to low BP.Left groin venous sheath is intact,2 pulse on left femoral pulse. Hx obtained from his mother. Assessment completed. He is hypothermic,temp was reading 92.5 degree. Viviana kumar applied on pt. Care plans are initiated, continue working toward goals.
[2019-09-10 01:12] LABS: HEMATOCRIT 44.2 % (42.0-52.0); HEMOGLOBIN 14.5 gm/dL (14.0-18.0)
[2019-09-10 05:17] LABS: BE(vivo) -2.9 mmol/L (-2 to +3); HCO3 23.3 mmol/L (22.0-26.0); PCO2 45.6 mmHg (35.0-45.0); PO2 115.6 mmHg (80.0-100.0); sO2 97.9 % (92.0-98.0)
[2019-09-10 05:18] LABS: pH 7.326 (7.360-7.450)
[2019-09-10 05:23] LABS: ABSOLUTE NEUTROPHILS 16.6 thou/uL (1.4-8.2); BASOPHILS 0.2 % (0.0-2.0); EOSINOPHILS 0.7 % (0.0-3.0); HEMATOCRIT 44.3 % (42.0-52.0); HEMOGLOBIN 14.8 gm/dL (14.0-18.0); LYMPHOCYTES 3.9 % (24.0-44.0); MCHC 33.3 g/dL (28.0-37.0); MCV 95.9 fL (80.0-100.0); PLATELET COUNT 199 thou/uL (150-400); POLYS 91.2 % (36.0-66.0); RBC 4.62 mil/uL (4.50-6.00); RDW 13.8 % (10.5-14.5); WBC 18.2 thou/uL (4.0-11.0)
[2019-09-10 05:38] LABS: ALBUMIN 2.6 g/dL (3.4-5.0); CALCIUM 7.7 mg/dL (8.5-10.1); CREATININE 0.3 mg/dL (0.7-1.3); POTASSIUM 3.3 mmol/L (3.5-5.1); TOTAL BILIRUBIN 3.2 mg/dL (<0.1-1.0); TOTAL PROTEIN 6.6 g/dL (6.4-8.2)
--- NOTE | 2019-09-10 06:36 | NUR ---
Pt remains stable this am. No s/sx of any active bleeding indicates. Hb stable. Venous sheath on left groin remains inplace. 2 + pulse at groin site. Hb remains stable. Continue to monitor.
--- NOTE | 2019-09-10 10:15 | NUR ---
DR. JEWELL SPOKE WITH PT REGARDING CONDITION. PT MOTHER WANTS TO HAVE EVERY THING DONE FOR HER SON.
--- NOTE | 2019-09-10 14:10 | NUR ---
PT COUGHED UP A BRIGHT RED BLOOD THROUGH HIS TRACH. RT SX APPROXIMATELY 20CC OUT. DR. LOO INFORMED VIA RT. 02 SAT REMAINED 97-98%. RESP EVEN AND UNLABORED. BS REMIAN COARSE AND DIMINISHED.
--- NOTE | 2019-09-10 18:00 | NUR ---
DR THOMPSON PAGED, RE UPDATE AND TO FIND OUT IF SHEATH SHOULD STILL STAY IN PLACE. AWAITING CALL BACK.
--- NOTE | 2019-09-10 19:30 | NUR ---
DR. THOMPSON CALLED BACK ORDERS GIVEN. REPORTED SMALL AMT OF JACQUELINE RED BLOOD THIS AFTERNOON. MD STATES TO TAKE SHEATH OUT AND THAT HE COULD ALWAYS PUT IT BACK IN IF NEEDED. NOC NURSE INFORMED.
--- NOTE | 2019-09-10 21:04 | NUR ---
LEFT GROIN SHEATH PULLED AND HEMOSTASIS OCCURED AT 2054. VERIFIED PRIOR WITH DR. THOMPSON AND DR. LOO.
[2019-09-11] VITALS (93 sets, daily range): BP systolic 75–123; BP diastolic 49–77
--- NOTE | 2019-09-11 18:12 | NUR ---
ASSUMED CARE @ 0700 09/11/19, PT STILL ON LEVO, RN TITRATING ACTIVELY PER BP READINGS. PT HAD AN EPISODE OF A VERY SMALL RED CLOT IN TRACH, RN SUCTIONED IT OUT, NO MORE EPISODES SINCE THEN. MOM HERE TO VISIT WITH DURING THE SHIFT. PLAN OF CARE- CONT TO MONITOR.
[2019-09-11 21:54] LABS: URINE BILIRUBIN NEGATIVE (Negative); URINE BLOOD NEGATIVE (Negative); URINE CLARITY CLEAR; URINE COLOR YELLOW; URINE GLUCOSE-RANDOM* NEGATIVE (Negative); URINE KETONES TRACE (Negative); URINE LEUKOCYTES NEGATIVE (Negative); URINE NITRITE NEGATIVE (Negative); URINE PROTEIN (DIPSTICK) NEGATIVE (Negative)
[2019-09-12] VITALS (73 sets, daily range): BP systolic 89–119; BP diastolic 49–81
[2019-09-12 04:45] LABS: ABSOLUTE NEUTROPHILS 5.8 thou/uL (1.4-8.2); BASOPHILS 0.6 % (0.0-2.0); EOSINOPHILS 3.7 % (0.0-3.0); HEMATOCRIT 41.5 % (42.0-52.0); HEMOGLOBIN 13.6 gm/dL (14.0-18.0); LYMPHOCYTES 15.7 % (24.0-44.0); MCH 31.7 pg (26.0-34.0); MCHC 32.8 g/dL (28.0-37.0); MCV 96.6 fL (80.0-100.0); MONOCYTES 11.4 % (1.0-8.0); PLATELET COUNT 197 thou/uL (150-400); POLYS 68.6 % (36.0-66.0); RBC 4.29 mil/uL (4.50-6.00); RDW 13.9 % (10.5-14.5); WBC 8.4 thou/uL (4.0-11.0)
[2019-09-12 05:07] LABS: ALBUMIN 2.3 g/dL (3.4-5.0); CREATININE 0.3 mg/dL (0.7-1.3); MAGNESIUM 1.7 mg/dL (1.8-2.4); TOTAL BILIRUBIN 1.2 mg/dL (<0.1-1.0); TOTAL PROTEIN 6.2 g/dL (6.4-8.2)
[2019-09-12 05:09] LABS: POTASSIUM 2.5 mmol/L (3.5-5.1)
[2019-09-12 05:50] LABS: BE(vivo) 0 mmol/L (-2 to +3); HCO3 25.4 mmol/L (22.0-26.0); PCO2 43.8 mmHg (35.0-45.0); PO2 82.1 mmHg (80.0-100.0); pH 7.381 (7.360-7.450); sO2 95.9 % (92.0-98.0)
--- NOTE | 2019-09-12 10:42 | NUR ---
Nutrition: REC initiate tube feeds equivalent to pt's usual regimen. Jevity 1.5 at 100 mL/hr x 8 hrs daily. REC 100 ML H20 flush q 6 hrs while on current ivpbs. Will follow propofol demands.
--- NOTE | 2019-09-12 10:45 | NUR ---
WOUND CONSULT; THIS PATIENT HAS NO WOUNDS. THE PATIENT HAS A HISTORY OF WOUNDS DATING BACK 30 YEARS TO THE SACRUM AND THE LEFT HEEL. THE PATIENTS MOTHER IS REQUESTING ZGUARD. RECOMMENDATIONS; AMMONIA LACTATE CREAM TO THE LATERAL THIGHS BILATERALLY RN TO ASK HOSPITALIST FOR THIS. APPLY ZGUARD TO PERIRECTAL AND SACRAL AREAS FOR PREVENTION. RN PRESENT
[2019-09-12 12:12] LABS: MAGNESIUM 2.5 mg/dL (1.8-2.4); POTASSIUM 3.4 mmol/L (3.5-5.1)
--- NOTE | 2019-09-12 13:59 | NUR ---
IV TEAM REPORTS RIGHT UPPER ARM PICC OK TO USE.
--- NOTE | 2019-09-12 14:17 | NUR ---
VASCULAR ACCESS CONSULTED FOR PICC LINE PLACEMENT, THEN DC FEMORAL LINE. DISCUSSED BENEFITS AND RISK WITH PT'S MOTHER, VERBALIZED UNDERSTANDING. CONSENT AND ORDER VERIFIED. ATTEMPTED RUFUS CEPHALIC BUT UNABLE TO GET LINE TO PASS SHOULDER AREA AND DROP. THEN KATHERINE BRACHIAL WAS WIDELY PATENT WITH USG. 5FR TL PICC TRIMMED TO 43 CM INSERTED TO 1CM EXTERNAL. STAT CXR OBTAINED, CXR STATES TOO DEEP SO LINE WITHDREW 3CM FOR TOTAL OF 4CM. PICC RELEASED FOR IMMEDIATE USE TO BROWN SCHAFFER.
--- NOTE | 2019-09-12 14:28 | NUR ---
REPORT RECISVED FROM CARLENE SCHAFFER AT 1100 TODAY.
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
--- NOTE | 2019-09-12 16:39 | NUR ---
PT ON SERVICE WITH [facility] RECEIVED CONFIRMTION AND LEFT MSG WITH INTAKE.
[2019-09-13] VITALS (43 sets, daily range): BP systolic 89–127; BP diastolic 51–83
[2019-09-13 05:29] LABS: HEMATOCRIT 39.8 % (42.0-52.0); HEMOGLOBIN 13.1 gm/dL (14.0-18.0); MCH 31.9 pg (26.0-34.0); MCHC 32.8 g/dL (28.0-37.0); MCV 97.1 fL (80.0-100.0); RBC 4.1 mil/uL (4.50-6.00); RDW 14.4 % (10.5-14.5)
[2019-09-13 05:44] LABS: CREATININE 0.3 mg/dL (0.7-1.3)
--- NOTE | 2019-09-13 19:31 | NUR ---
PT REMAINS ON VENT. WITH CHRONIC TRACH. TITRATED OFF PROPOFOL AND TOLERATING WELL. UNABLE TO TITRATE OFF LEVOPHED. NEEDING 2MCG TO MAINTAIN PRESSURES WITH MAP >60. ORDERS TO START TUBE FEEDINGS PER SUPERVISOR SHRIMP POND RECOMMENDATION. PERIODS OF BRADYCARDIA THROUGH OUT THE DAY, UPDATED HOSPITILIST. NO NEW ORDERS AT THIS TIME. WILL CONTINUE TO MONITOR. MOTHER AT BEDSIDE THROUGH OUT THE DAY. K+ REPLACED PER ELECTROLYTE PROTOCOL, RE-DRAW WITH IN NORMAL VALUE.
[2019-09-14] VITALS (34 sets, daily range): BP systolic 86–115; BP diastolic 48–82
[2019-09-14 05:32] LABS: HEMATOCRIT 40.3 % (42.0-52.0); HEMOGLOBIN 13.3 gm/dL (14.0-18.0); MCHC 33.1 g/dL (28.0-37.0); MCV 96.9 fL (80.0-100.0); RBC 4.16 mil/uL (4.50-6.00); RDW 14.6 % (10.5-14.5); WBC 8.7 thou/uL (4.0-11.0)
[2019-09-14 05:46] LABS: CALCIUM 8.2 mg/dL (8.5-10.1); CREATININE 0.3 mg/dL (0.7-1.3); POTASSIUM 3.7 mmol/L (3.5-5.1)
--- NOTE | 2019-09-14 10:41 | NUR ---
FOLLOWING FOR DC PLANINNG. CLINICAL INFO REVIEWED. DISCUSSED WITH DR. CHEN THIS AM-RECOMMENDATION FOR LTAC STAY FROM [facility] AND DR. CHEN INDICATED HER TALKED TO PT'S MOM ASAEL ABOUT LTAC THIS AM. PT IS IN VEGETATIVE STATE, ON TRACH SHIELD AT HOME, NOW ON VENT AFTER ADMIT FOR PULM HEMMORHAGE. PLAN TO WORK TOWARD VENT WEANING. MET WITH PT'S MOTHER ASAEL ETIENNE AND PROVIDED LTAC LIST AND DISCUSSSED LTAC CARE AND PT'S MEDICAL BENEFITS. ENCOURAGED ASAEL TO TOUR FACILITIES. ASAEL INDICATED HER PREFERENCE WOULD BE TO STAY AT [facility] UNTIL PT READY TO TRANSITION HOME, EVEN IF HOME VENT NEEDED. ALL 3 LTACS ACCEPT PT'S INSURANCE. ASAEL REQUESTS NO LIASONS FROM LTAC CONTACT HER. DR. CHEN UPDATED AFTER DISCUSSION WITH PT'S MOM ASAEL. WILL FOLLOW.
[2019-09-15] VITALS (49 sets, daily range): BP systolic 83–133; BP diastolic 30–110
[2019-09-15 05:22] LABS: HEMATOCRIT 38.5 % (42.0-52.0); HEMOGLOBIN 12.7 gm/dL (14.0-18.0); MCH 31.8 pg (26.0-34.0); MCHC 32.9 g/dL (28.0-37.0); MCV 96.5 fL (80.0-100.0); RBC 3.99 mil/uL (4.50-6.00); RDW 14.3 % (10.5-14.5); WBC 8.1 thou/uL (4.0-11.0)
--- NOTE | 2019-09-15 05:39 | NUR ---
ASSUMED CARE OF PATIENT AT 1900. VSS, BEAR HUGGER IN PLACE UNTIL NORMOTHERMIC. MOM AT BEDSIDE. POC DISCUSSED AT LENGTH. FEELS VERY STRONGLY AGAINST SENDING SON TO LTAC. ATTEMPTED TO WEAN OFF LEVO, REMAINS ON 0.5 MCG TO KEEP MAP ABOVE 60. FREQUENT SUCTIONING NEEDED. WILL CONTINUE TO MONITOR.
[2019-09-15 05:54] LABS: CREATININE 0.3 mg/dL (0.7-1.3); POTASSIUM 3.5 mmol/L (3.5-5.1)
--- NOTE | 2019-09-15 09:59 | NUR ---
Nutrition: Pt with LE edema requiring lasix dose. Weights steadily increasing up 18# from admit. Pt receiving > 3 L fluid daily. REC D/C IVFs.
--- NOTE | 2019-09-15 16:31 | NUR ---
FOLLOWING FOR DC PLANNING. CLINICAL INFO REVIEWED. DISCUSSED CASE AND LTAC WITH PT'S PCP DR. ALVAREZ LATE YESTERDAY WHILE DR. ALVAREZ DOING A COURTESY ROUND ON PT. DR. ALVAREZ INDICATED HE FELT LTAC A GOOD PLAN AND HE WOULD SPEAK WITH PT'S MOTHER ASAEL. DISCUSSED WITH DR. GARCIA TODAY WHO INDICATED PT'S MOTHER WAS AGREEABLE TO LTAC. MET WITH ASAEL LOWELL THIS AFTERNOON. REVIEWED LTAC RECOMMENDATION. ASAEL INDICATES SHE STILL DOES NOT WANT TO TRANSITION TO LTAC AND WOULD PREFER TO STAY AT [facility] OR TRANSITION HOME WITH HOME VENT IF NEEDED. PULM NOTES INDICATE PLAN TO "REST" PT ON VENT BUT PERIOD OF TIME NOT SPECIFIED. ASAEL FEELS SHE NEEDS MORE COMMUNICATION FROM PHYSICIANS REGARDING PLAN OF CARE. SHE DOES HAVE LTAC LIST BUT IS NOT PREPARED TO MAKE CHOICE AND HAS NOT TOURED AND FACILITY. WILL CONTINUE TO SUPPORT PT'S MOM IN COORDINATION OF DC PLAN.
[2019-09-16] VITALS (61 sets, daily range): BP systolic 75–116; BP diastolic 46–98
--- NOTE | 2019-09-16 04:26 | NUR ---
NO OVERNIGHT EVENTS. BP REMAINS STABLE MAP ABOVE 60 MAINTAINED PER DOCTOR ORDER. ASSESSMENTS AND VITAL SIGNS CHARTED. CONTINUE TO FOLLOW POC. WILL CONTINUE TO MONITOR.
[2019-09-16 05:06] LABS: HEMATOCRIT 38.2 % (42.0-52.0); HEMOGLOBIN 12.7 gm/dL (14.0-18.0); MCH 32.1 pg (26.0-34.0); MCHC 33.2 g/dL (28.0-37.0); MCV 96.9 fL (80.0-100.0); RBC 3.94 mil/uL (4.50-6.00); RDW 14.1 % (10.5-14.5); WBC 6.9 thou/uL (4.0-11.0)
[2019-09-16 05:25] LABS: CALCIUM 8.2 mg/dL (8.5-10.1); CREATININE 0.3 mg/dL (0.7-1.3); POTASSIUM 3.1 mmol/L (3.5-5.1)
[2019-09-16 08:53] LABS: BE(vivo) 2.1 mmol/L (-2 to +3); HCO3 28.3 mmol/L (22.0-26.0); PCO2 50.3 mmHg (35.0-45.0); PO2 111.3 mmHg (80.0-100.0); pH 7.368 (7.360-7.450); sO2 97.9 % (92.0-98.0)
[2019-09-17] VITALS (48 sets, daily range): BP systolic 83–118; BP diastolic 50–78
--- NOTE | 2019-09-17 03:55 | NUR ---
NO OVERNIGHT EVENTS. BLOOD PRESSURE REMAINS STABLE WITHOUT THE USE OF PRESSORS. ASSESSMENTS AND VITAL SIGNS CHARTED. CONTINUE TO FOLLOW POC. WILL CONTINUE TO MONITOR.
[2019-09-17 05:28] LABS: HEMATOCRIT 38.4 % (42.0-52.0); HEMOGLOBIN 12.5 gm/dL (14.0-18.0); MCH 31.7 pg (26.0-34.0); MCHC 32.4 g/dL (28.0-37.0); MCV 97.8 fL (80.0-100.0); RBC 3.93 mil/uL (4.50-6.00); RDW 14.3 % (10.5-14.5); WBC 6.5 thou/uL (4.0-11.0)
[2019-09-17 05:38] LABS: CALCIUM 8.3 mg/dL (8.5-10.1); CREATININE 0.3 mg/dL (0.7-1.3); POTASSIUM 3.5 mmol/L (3.5-5.1)
--- NOTE | 2019-09-17 18:27 | NUR ---
ASSUMED CARE @ 0700 09/17/19, PT ASSESSMENTS AND VSS COMPLETE PER ICU PROTOCOL. LEVOPHED OFF THE WHOLE SHIFT, MAP MAINTAINING ABOVE 60. MOTHER HERE DURING THE SHIFT TO VISIT WITH. PT HAD AN UNEVENTFUL DAY. PLAN OF CARE- CONT TO MONITOR.
[2019-09-18] VITALS (26 sets, daily range): BP systolic 83–111; BP diastolic 48–70
--- NOTE | 2019-09-18 06:03 | NUR ---
NO OVERNIGHT EVENTS. ASSESSMENTS AND VITAL SIGNS CHARTED. MAP MAINTAINED ABOVE 60. CONTINUE TO FOLLOW POC. WILL CONTINUE TO MONITOR.
--- NOTE | 2019-09-18 16:59 | NUR ---
ASSUMED CARE @ 0700 09/18/19, PT ASSESSMENTS AND VSS COMPLETE PER ICU PROTOCOL. PT HAD AN UNEVENTFUL DAY, CC TELE ORDERS RECIEVED PER DR CHEN, DR TORIBIO AWARE AND AGREEABLE TO THIS DECISION. REPORT GIVEN TO TYLER SCHAFFER. PT TRANSPORTED WITH THE AID OF NURSING STAFF AND RT, NO COMPLICATION NOTED. MOM AT BEDSIDE DURING THIS TRANSFER. PLAN OF CARE- CONT TO MONITOR.
--- NOTE | 2019-09-18 18:15 | NUR ---
pt transfered from ICU about 1630pm, pt is continuing BIPAP 02 30% at trach, pt opens his eyes, but does not follow commands, pt is continuing iv NS AT 80ML/HR, pt's vs and o2sat are stable, pt's monther stays at pt's bedside.
[2019-09-19 04:19] VITALS: BP 97/58
[2019-09-19 06:03] LABS: CREATININE 0.3 mg/dL (0.7-1.3); POTASSIUM 3.5 mmol/L (3.5-5.1)
[2019-09-19 07:54] VITALS: BP 97/59
--- NOTE | 2019-09-19 10:30 | NUR ---
WOUND CARE FOLLOW UP; NO WOUNDS IDENTIFIED OR REPORTED. THE PATIENTS MOTHER IS AT THE BEDSIDE CONTINUALLY WHO IS THE PRIMARY CAREGIVER AT HOME FOR THE LAST 30 YEARS. RECOMMENDATION; ADD A LOW AIR LOSS PUMP DISCUSSED WITH RN
[2019-09-19 12:13] VITALS: BP 107/66
--- NOTE | 2019-09-19 12:35 | NUR ---
ON THE VENT PER TRACH, NON VERBAL. VITALS STABLE. TUBEFEEDING STARTED THIS MORNING TO RUN TILL THIS AFTERNOON. PLACED ON CPAP BY RT THIS MORNING AND IS TOLERATING WELL. MOTHER AT THE BEDSIDE AND REQUESTED PER HVAC DESIGNER TO NOT TURN PATIENT 2HRS AND LEAVE ON HIS BACK FOR 4HRS. ORDER IS IN [employer] PER FAMILY REQUEST. WILL CONTINUE WITH POC.
[2019-09-19 16:10] VITALS: BP 115/70
--- NOTE | 2019-09-19 16:22 | NUR ---
SW reviewed chart and spoke with nursing and attending physician. Pt was transferred to 3 from ICU and is slowly progressing towards goals for discharge. Pt is on the vent at nighttime. SW met with pt's mother at bedside. Lengthy discussion with pt's mother regarding discharge planning. Pt's mother wants pt to go home when discharged. Pt's mother is agreeable to take pt home on the vent if needed. Hopeful that pt will be weaned off the vent prior to discharge. Pt's mother does not want pt to go to an LTAC. Pt's mother states that pt has 24 hour care and HH at home. SW is following to assist as needed with discharge planning.
[2019-09-19 19:48] VITALS: BP 109/62
--- NOTE | 2019-09-20 03:13 | NUR ---
Patient making progress towards outcome goals. Vital signs and rhythm stable. Oxygenation optimal with current vent settings. Frequesnt suctioning oral secretions, mouth care. Bear hugger in place for temperature control. Turned to sides every 2 hours.
[2019-09-20 03:54] VITALS: BP 96/56
[2019-09-20 07:51] VITALS: BP 101/61
--- NOTE | 2019-09-20 10:10 | NUR ---
Pts protein needs are not being met. Recommendation to change water flush schedule to 240ml every 6 hr and add 1 packet beneprotein in every flush.
--- NOTE | 2019-09-20 10:47 | NUR ---
JONNY reviewed chart. JONNY faxed clinical info and demographics to [facility] for review for possible home ventilator. JONNY notified [facility] liaison. JONNY is following to assist as needed with discharge planning.
[2019-09-20 11:41] VITALS: BP 90/59
--- NOTE | 2019-09-20 12:00 | NUR ---
Placed on CPAP trial per RT, did not tolerate earlier.
[2019-09-20 15:26] VITALS: BP 101/60
--- NOTE | 2019-09-20 15:58 | NUR ---
patient is unresponisve. Resonds to pain. patients mom is in the room throughout the day helping out with the patient. he is stable. needs suction form time to time but gets aggitated once completed. patient has been turned frequently. no BM for the day. patient has 2 plus edema in the legs with hard to feel pulses. patients mom is in the room with patient at the time.
--- NOTE | 2019-09-20 18:37 | NUR ---
Shift summary: Pt remains poorly responsive/quad...baseline. VSS. Afebrile. CPAP 5/PS 6 30% FiO2 since 1200. Mother wants pt to return to their home on or off ventilator. Lungs coarse. Tubefeed not available until 11am. Will run x 8 hrs until 1900. 100ml free water q 6hrs. No BM x 1 week. Senna and miralax being given. UOP qs via condom catheter. Mother at bedside most of day, very supportive. Plan of care reviewed and updated as able. Pt making slight progress towards discharge goals.
[2019-09-20 19:26] VITALS: BP 106/60
[2019-09-21 03:09] VITALS: BP 101/77
--- NOTE | 2019-09-21 05:48 | NUR ---
SLEPT MOST OF SHIFT. TURNED FOR COMFORT AND SKIN CARE. REMAINS NON VERBAL BUT DOES OPEN RIGHT EYE. TOLERATING VENT SETTINGS. WORKING ON GOALS AND PLAN OF CARE FOR NOC. PROGRESSING SLOWLY TOWARDS DISCHARGE GOALS. CONTINUE TO ASSES CLOSELY.
[2019-09-21 07:35] VITALS: BP 99/64
[2019-09-21 11:47] VITALS: BP 98/59
--- NOTE | 2019-09-21 12:16 | NUR ---
DISCHARGE PLANNING. ANTICIPATED DISCHARGE TO HOME WITH HOME HEALTH SERVICES AND POSSIBLE VENTILATOR FOR HOME. PATIENT REFERRAL FAXED TO [facility] PER REQUEST. [facility] AWARE OF PATIENTS POSSIBLE VENTILATOR NEEDS FOR HOME. AWAITING INTAKE RESPONSE. FOLLOWING.
--- NOTE | 2019-09-21 13:48 | NUR ---
JONNY reviewed chart and spoke with nursing and attending physician. Pt does require the ventilator at nighttime. Goal is for pt to be weaned off the vent prior to discharge. However, pt does qualify for a home vent unit. [facility] faxed over documentation needed for physician to sign to order the home vent. JONNY left voice message for pt's mother to provide update. Pt's mother is not present at bedside. JONNY spoke with Maris at [facility] to provide update. Maris requests signed form to be faxed over today, to start working on insurance authorization. JONNY faxed information. demand planner to fax clinical updates to [facility] for review. JONNY is following to assist as needed with discharge planning.
[2019-09-21 15:38] VITALS: BP 94/58
--- NOTE | 2019-09-21 18:05 | NUR ---
PT TURNED PER MOTHER'S REQUEST SCHEDULE, PT GIVEN PRN SUPPOSITORY PER MOTHER REQUEST, PT HAD SMALL BOWEL MOVEMENT, MOTHER STATED THIS IS NOT BIG ENOUGH FOR HIM AND REQUESTS ANOTHER SUPPOSITORY TONIGHT PER POWDER CORE TESTER, WILL PASS ON IN REPORT. PT TUBE FEED RAN FOR 8 HOURS PER ORDER.
[2019-09-21 19:14] VITALS: BP 114/70
[2019-09-22 07:37] VITALS: BP 105/62
--- NOTE | 2019-09-22 08:08 | NUR ---
PATIENT IS NONVERBAL. PATIENT OCCATIONALLY TRACKS. PATIENT PULLS FROM PAIN. GAG REFLEX INTACT. PAITENTS TEMP IS REGULATED BY THE BEAR HUGGER. PAITENT IS SINUS EFFIE ON TELE. PATIENT LBM WAS THE 7TH. PATIENTS PEG TUBE IS INTIACT. PATIENT IS ON THE VENT #6 SHIELY TRACH. PATIENT EXPERIENCES COUGHING FITS WITH TURNS. PATIENT IS RESTING COMFORTABLY IN BED. NO SIGNS OF PAIN. PATIENT IS PROGRESSING TO GOALS. WCM.
[2019-09-22 11:28] VITALS: BP 108/61
--- NOTE | 2019-09-22 13:28 | NUR ---
JONNY reviewed chart and spoke with nursing and attending physician. Pt remains on ventilator at nighttime. Attending physician agreeable with ordering home ventilator unit. JONNY spoke with pt's mother via phone to provide update. Pt's mother states that pt's vent weaning hours should be extended today, with hope of pt being able to be weaned off the vent prior to discharge. Pt's mother is agreeable with having home vent unit if needed. JONNY explained process for obtaining home vent unit. Pt's mother verbalized understanding and agreeable with speaking with [facility] regarding home vent. Pt will need to qualify for home O2 by having a RA sat of 88% or below. Home visit will need to be coordinated with pt's mother. JONNY spoke with Maris at [facility] who confirmed info was received yesterday and they are working with pt's insurance. Maris will contact pt's mother to arrange home visit. [facility] will resume services when pt is discharged. JONNY is following to assist as needed with discharge planning.
[2019-09-22 15:00] VITALS: BP 100/62
[2019-09-22 20:17] VITALS: BP 101/70
--- NOTE | 2019-09-22 20:18 | NUR ---
Patient is working towards discharge goals; he has tolerated bipap well and the vent weaning process is ongoing. Nursing will continue to monitor.
--- NOTE | 2019-09-23 04:20 | NUR ---
PATIENT IS NONVERAL, FLEXTON TO PAIN, GAG REFLEX, FOOT DROP. PAITENT IS Q2TURN. PATIENT IS SINUS EFFIE. PATIENTS LBM WAS THE 8TH. PATIENT HAS EXTERNAL CATH. PATIENT IS ON VENT HS. CPAP TRAILS DAY 7. 100ML FLUSHES Q6H. PATIENT IS PENDING DISCHARGE NEXT WEEK AWAITING A COUPLE MORE CPAP DAYS AND DELIVERY OF HOME VENT. PATIENT IS RESTING COMFORTABLY IN BED. WCM.
[2019-09-23 04:28] VITALS: BP 88/56
[2019-09-23 05:00] LABS: HEMATOCRIT 39.5 % (42.0-52.0); HEMOGLOBIN 12.7 gm/dL (14.0-18.0); MCH 31.4 pg (26.0-34.0); MCHC 32.2 g/dL (28.0-37.0); MCV 97.5 fL (80.0-100.0); RBC 4.05 mil/uL (4.50-6.00); RDW 14.2 % (10.5-14.5); WBC 7.7 thou/uL (4.0-11.0)
[2019-09-23 05:08] LABS: CALCIUM 8.7 mg/dL (8.5-10.1); CREATININE 0.4 mg/dL (0.7-1.3); POTASSIUM 3.6 mmol/L (3.5-5.1)
[2019-09-23 05:48] VITALS: BP 99/48
[2019-09-23 07:24] VITALS: BP 91/58
[2019-09-23 11:36] VITALS: BP 111/67
--- NOTE | 2019-09-23 13:15 | NUR ---
JONNY reviewed chart and spoke with nursing and attending physician. Pt currently on cpap trail. Pt did need ventilator support last night. Vent weaning to continue. JONNY spoke with Maris at [facility] to provide update. JONNY obtained room air sat of 87%. Clinical info and scripts for home O2, suction machine and home ventilator faxed to [facility] for review. No weekend discharge planned. [facility] to do home visit with pt's mother on Thursday. Pt's mother is not available for the home visit today. JONNY spoke with Homa at [facility] ([phone]) to discuss discharge plan. Plan is for pt to return home and resume HH through [facility] when medically stable. JONNY is following to assist as needed with discharge planning.
[2019-09-23 15:57] VITALS: BP 107/64
--- NOTE | 2019-09-23 16:39 | NUR ---
patient tolerated on cpap very well. vss. suction as need. tolerated TF. progressing towards poc goals.
[2019-09-23 19:24] VITALS: BP 121/63
[2019-09-24 04:26] VITALS: BP 106/58
--- NOTE | 2019-09-24 05:06 | NUR ---
FOLLOWING POC WITH MEDS THROUGH PEG TUBE. PT BED HAS LOW LOSS AIR PUMP. PT IS ON VENT OVERNIGHT AND CONTINUOS PULSE OX. 02 SATURATIONS AT 96%. PT AUNT SAID NOT TO TURN PT OVERNIGHT, AND LEAVE HIM IN SEMI SCHNEIDER. PT IS NON VERBAL AND CANNOT EXPRESS NEEDS. HOURLY ROUNDING.
[2019-09-24 07:08] VITALS: BP 90/58
[2019-09-24 15:42] VITALS: BP 106/67
--- NOTE | 2019-09-24 18:16 | NUR ---
Patient started on cpap at 1200. tolerated well. slowly towards poc goals.
[2019-09-24 19:36] VITALS: BP 112/84
[2019-09-25 03:25] VITALS: BP 103/60
--- NOTE | 2019-09-25 06:26 | NUR ---
PT WAS STARTED ON THE 24 HOUR CPAP STUDY. PULSE OX AND CPAP DID NOT ALARM OFF, EXCEPT DURING CLEAN UP OF THE PT AFTER BM. EXTERNAL CATH IN PLACE WITH GOOD DRAINAGE AND NO LEAKAGE. HOURLY ROUNDING. VSS.
[2019-09-25 07:22] VITALS: BP 98/62
[2019-09-25 12:03] VITALS: BP 105/78
[2019-09-25 15:19] VITALS: BP 105/63
--- NOTE | 2019-09-25 15:31 | NUR ---
ASSUMED CARE OF PT AT 0700. PT NON VERBAL, LARGELY NON INTERACTIVE. ON PRESSURE SUPPORT PER RESP THERAPY. 2 LARGE BM'S TODAY. BLOOD TINGED SECRETIONS. ZGUARD APPLIED TO SKIN. CONDOM CATH IN PLACE. TOLERATING TUBE FEEDING. TURNED Q2H AND PRN. SINUS ON TELEMETRY. NO OTHER CHANGES TO REPORT. WILL CONT TO MONITOR.
[2019-09-25 19:20] VITALS: BP 105/68
[2019-09-26 04:00] VITALS: BP 101/61
--- NOTE | 2019-09-26 04:33 | NUR ---
TURNS NEEDED, SUCTIONING NEEDED. HIS MOTHER STAYED UNITL BEDTIME. NO CONCERNS VOICED FROM THE MOM. NURSING CONCERN IS THAT I FOUND A BOTTLE OF TALCUM POWDER IN HIS BED. PTS MOTHER NEEDS EDU THAT THIS IS NOT SAFE WITH A TRACH PATIENT. I DIDNT NOT GET TO SPEAK WITH HER ABOUT THIS TONIGHT. TRACH CARES COMPLETED. CAREPLAN REVIEWED.
[2019-09-26 07:39] VITALS: BP 102/52
[2019-09-26 11:45] VITALS: BP 107/61
--- NOTE | 2019-09-26 12:53 | NUR ---
JONNY reviewed chart and spoke with nursing and attending physician. Vent weaning trials continue. Pt not completely off the vent at this time. JONNY spoke with Maris at [facility] regarding home vent unit. Home visit to be completed today with pt s mother. JONNY faxed additional clinical info to [facility]. Will need additional documentation signed by physician. environmental planner to fax clinical updates to [facility] for review. Pt will resume services when discharged home. JONNY is following to assist as needed with discharge planning.
--- NOTE | 2019-09-26 13:53 | NUR ---
Nutrition: Continue to rec change water flushes to 240 ML q 6 hrs with beneprotein powder packet in each flush to provide 24 additional grams protein daily as current protein provisions meeting only 58% of needs.
[2019-09-26 15:35] VITALS: BP 113/68
--- NOTE | 2019-09-26 16:04 | NUR ---
Assumed care approx. 0700 this AM. No acute changes this shift. Pt taken of CPAP mode this AM per RT as patient was breathing 30-35/min. Jevity 1.5 infusing and water flushes given per orders. Condom cath in place and right upper arm PICC line intact. Patient's mother has been refusing for the patient to be turned Q2H as she wants him to remain comfortable and not become agitated. Goal for patient to dc home this week. Pt slowly progressing toward plan of care goals.
[2019-09-26 19:25] VITALS: BP 111/60
--- NOTE | 2019-09-27 03:15 | NUR ---
doing well tonight on trach shield at 11.0 liters. his o2 sats have been hovering around 99 % linens changed and completed bath done.his mother stayed until bedtime. no bm this shift. careplan reviewed.
[2019-09-27 03:50] VITALS: BP 100/54
[2019-09-27 07:50] VITALS: BP 110/60
[2019-09-27 07:56] VITALS: BP 105/60
[2019-09-27 11:45] VITALS: BP 113/53
--- NOTE | 2019-09-27 14:37 | NUR ---
JONNY reviewed chart and spoke with nursing. Pt continues vent weaning. JONNY met with pt and mother at bedside. Pt's mother is hopeful that pt will be weaned off the vent. JONNY explained that [facility] will follow for home vent if needed. Pt will discharge home and resume services through [facility]. JONNY updated Maris at [facility]. JONNY is following to assist as needed with discharge planning.
[2019-09-27 15:15] VITALS: BP 125/75
--- NOTE | 2019-09-27 16:06 | NUR ---
AM: PT CONTINUED WEANING OFF OF VENT AND TOLERATING WELL. HAD LOW TEMP OF 94F AND THEN WAS PUT ON BED HUGGER AND NOW TEMP BACK TO 98F. PT DROWSY AND NOT VERY REPSONSIVE AND ALERT. PT TURNED Q2 PER ORDERS. NOON: PT TOLERATING TUBE FEEDINGS WELL AND BECOMING MORE ALERT. ORAL CARE PERFORMED PER ORDERS. MEDS GIVEN VIA TUBE PER ORDERS. LUNG SUONDS REMAIN COARSE IN UPPER LOBES AND DIMINISHED IN LOWER LOBES. SKIN REMAINS INTACT AND DRY. VOIDING CLEAR YELLOW URINE VIA CONDOM CATH. PT TURNED Q2 PER ORDERS. AFTERNOON: PTS MOM AT BEDSIDE. WORKING TOWARD GOALS FOR DISCHARGE. PT WATCHING TV WITH MOTHER. VS REMAIN WNL. PT TURNED Q2 PER ORDERS.
--- NOTE | 2019-09-27 16:18 | NUR ---
Assumed care approx. 0700 this AM. Pt more awake and alert this shift. Pt has tolerated the trach shield well-thick, yellow secretions suctioned from trach. Jevity 1.5 tube feed infusing and Q6H 100 ml water flushes administered per orders. Skin remains intact. Pt turned Q2H or when pts mother allows. Right upper PICC in place. No acute changes this shift. Patient progressing toward plan of care goals.
[2019-09-27 19:18] VITALS: BP 120/67
[2019-09-28 03:27] VITALS: BP 136/69
[2019-09-28 04:52] LABS: ABSOLUTE NEUTROPHILS 8.3 thou/uL (1.4-8.2); BASOPHILS 0.7 % (0.0-2.0); EOSINOPHILS 2.8 % (0.0-3.0); HEMATOCRIT 40.2 % (42.0-52.0); HEMOGLOBIN 13.2 gm/dL (14.0-18.0); LYMPHOCYTES 16.9 % (24.0-44.0); MCH 31.7 pg (26.0-34.0); MCHC 32.8 g/dL (28.0-37.0); MCV 96.5 fL (80.0-100.0); MONOCYTES 8.9 % (1.0-8.0); PLATELET COUNT 362 thou/uL (150-400); POLYS 70.7 % (36.0-66.0); RBC 4.16 mil/uL (4.50-6.00); RDW 13.8 % (10.5-14.5); WBC 11.8 thou/uL (4.0-11.0)
[2019-09-28 05:11] LABS: ALBUMIN 2.9 g/dL (3.4-5.0); CALCIUM 8.7 mg/dL (8.5-10.1); CREATININE 0.4 mg/dL (0.7-1.3); MAGNESIUM 1.8 mg/dL (1.8-2.4); PHOSPHORUS 2.7 mg/dL (2.5-4.9); POTASSIUM 3.9 mmol/L (3.5-5.1); TOTAL BILIRUBIN 1.1 mg/dL (<0.1-1.0); TOTAL PROTEIN 7.9 g/dL (6.4-8.2)
--- NOTE | 2019-09-28 05:25 | NUR ---
FOLLOWING POC WITH Q6 100 WATER FLUSHES AND VENT WEANING. LOW LOSS PUMP IN PLACE. PT HAS BEEN MOVED TO A TRACH SHIELD WITH GOOD OXYGENATION. PT IS NOW REQUIRING FREQUENT SUCTIONING OVER SHIFT (3X) BY NURSE. LABS DRAWN VIA PICC AND ALL CAPS REPLACED. LABS SHOWING INCREASE OF WBC TO 11.6 UP FROM PREVIOUS LABS. VSS AND TELE SHOWS PT RUNNING SR AND ONLY MOMENTS OF TACHY ARE DURING SUCTIONING PERIODS. HOURLY ROUNDING.
[2019-09-28 07:53] VITALS: BP 138/85
--- NOTE | 2019-09-28 10:06 | NUR ---
HAD STARTED PT TUBE FEED AT 0900, DR GOLDEN ORDERED ABDOMINAL US, JUST SPOKE WITH Flareo TECH, STOPPED TUBE FEED FOR NOW PER HIM AND HE WILL DO US THIS AFTERNOON.
--- NOTE | 2019-09-28 11:44 | NUR ---
SPOKE WITH DR LOO EARLIER, HE STATES PT CAN GO HOME TODAY PER PULM, HE SAID TO TRY PT ON ROOM AIR AND SEE IF HE TOLERATES AND LET MOM KNOW TO USE TRACH SHIELD FOR HUMIDITY IF NEEDED TO LOOSEN SECRETIONS AT HOME. TRACH SHIELD REMOVED, PT SPO2 90-92, MOM STATES PT RUNS AROUND 95% AT HOME AND WANTS TO KNOW WHAT GOAL SPO2 SHOULD BE. PAGE PLACED TO DR LOO.
[2019-09-28 12:24] VITALS: BP 109/73
[2019-09-28 13:11] LABS: BE(vivo) 4.2 mmol/L (-2 to +3); PCO2 49.3 mmHg (35.0-45.0); pH 7.402 (7.360-7.450); sO2 82.4 % (92.0-98.0)
[2019-09-28 13:12] LABS: PO2 46.9 mmHg (80.0-100.0)
[2019-09-28 15:08] VITALS: BP 115/73
--- NOTE | 2019-09-28 16:05 | NUR ---
isaac received a call from [facility] stating they can assist with discharge planning if needed by contacting them at [phone] and that patient has a dual plan where he can get home and community based services if needed. isaac notified sw.
--- NOTE | 2019-09-28 16:16 | NUR ---
JONNY reviewed chart and spoke with nursing and attending physician. Pt has not been on the ventilator and has been cleared by pulmonology for discharge. Pt does need 4L of O2. Script obtained. JONNY spoke with Shawna at [facility] to provide update. Since pt does not need the ventilator, pt's suction machine and O2 will be transferred back to [facility]. JONNY faxed info and orders to [facility] for review. JONNY spoke with Yary in intake who confirmed info was received. [facility] requests additional chart notes. community planner to fax. Pt to have ultrasound prior to discharge. JONNY discussed with nursing. US has not been done. JONNY met with pt's mother at bedside to provide update. Pt's mother is agreeable with discharge plan once US is done and O2/suction machine has been delivered to pt's home. JONNY discussed with attending physician. Discharge home will be tomorrow. Final discharge orders/summary have not been completed. JONNY updated pt's nurse, who will update pt's mother. JONNY is following to assist as needed with discharge planning.
--- NOTE | 2019-09-28 18:28 | NUR ---
PT TURNED PER MOTHER'S TIME REQUEST TODAY
[2019-09-28 19:38] VITALS: BP 110/71
[2019-09-29 04:00] VITALS: BP 107/69
--- NOTE | 2019-09-29 04:32 | NUR ---
RESUMED CARE FOR PT AGAIN THIS EVENING. PT HAD MODERATE LIQUID BM. FINISHED UP TUBE FEEDING. FOLLOWING POC WITH TRACH SHIELD AND FREQUENT SUCTIONING. Q2 TURNS. PULLED AM LABS FROM PICC WITHOUT ISSUE AND REPLACED LUBER CAP. AWAITING RESULTS TO COMPARE ALT PHOSPHATE RESULTS TO 09/28 AND WBC. IF NO ISSUES PT WILL DC HOME TODAY. HOURLY ROUNDING AND AFTER LABS WILL REASSESS.
[2019-09-29 05:06] LABS: HEMATOCRIT 38.5 % (42.0-52.0); HEMOGLOBIN 12.6 gm/dL (14.0-18.0); MCH 31.9 pg (26.0-34.0); MCHC 32.6 g/dL (28.0-37.0); MCV 97.8 fL (80.0-100.0); PLATELET COUNT 325 thou/uL (150-400); RBC 3.94 mil/uL (4.50-6.00); RDW 13.9 % (10.5-14.5); WBC 8.1 thou/uL (4.0-11.0)
[2019-09-29 05:19] LABS: ALBUMIN 2.6 g/dL (3.4-5.0); CALCIUM 8.6 mg/dL (8.5-10.1); CREATININE 0.3 mg/dL (0.7-1.3); MAGNESIUM 1.7 mg/dL (1.8-2.4); PHOSPHORUS 2.9 mg/dL (2.5-4.9); POTASSIUM 3.6 mmol/L (3.5-5.1); TOTAL BILIRUBIN 1.1 mg/dL (<0.1-1.0); TOTAL PROTEIN 7.4 g/dL (6.4-8.2)
[2019-09-29 07:34] VITALS: BP 99/68
[2019-09-29] MEDS ORDERED: LEVAQUIN 500 M500 M3 PO (07:51)
[2019-09-29] MEDS ORDERED: METRONIDAZOLE500 M4 PO (07:52)
[2019-09-29 08:44] VITALS: BP 99/68
[2019-09-29 08:51] LABS: ABSOLUTE NEUTROPHILS 4.9 thou/uL (1.4-8.2); PLATELET ESTIMATE NORMAL
[2019-09-29 11:26] VITALS: BP 112/73
--- NOTE | 2019-09-29 13:46 | NUR ---
DISCHARGE NOTE: JONNY reviewed chart and spoke with nursing and attending physician. Pt is medically stable for discharge home today with services. facility planner faxed orders to [facility]. JONNY faxed info and script to [facility] office and spoke with Ledy. Confirmed all info was received. Home O2 and suction machine to be delivered to pt's home today. SW to coordinate ambulance transportation home once DME is in place. JONNY discussed with pt's mother, who is agreeable with discharge plan. JONNY is following to finalize discharge.
[2019-09-29 15:12] VITALS: BP 99/68
--- NOTE | 2019-09-29 15:30 | NUR ---
ASSUMED CARE OF PT AT APPROX 0700. PT IS ALERT, NON VERBAL, AND UNABLE TO FOLLOW COMMANDS. NO APPARENT PAIN. EVEN NON LABORED BREATHING AND ABLE TO MAINTAIN 02 SAT >90 ON TRACH SHIELD. ASSESSMENT CHARTED. COMPLETED DC. WENT OVER NEW RX, FOLLOWUPS, AND DC INSTRUCTIONS WITH MOTHER. DENIES FURTHER QUESTIONS OR CONCERNS. PT DC'D AND TRANSPORTED VIA EMS. PT HAS MET POC GOALS OF DC.
== END 2019-09-29 15:15 | disposition home health service (06) | DRG 853 ==
LOC: ER 15:56 → EROBS 19:39 → ICU 19:39 → 3W 09-18 16:45
PROVIDERS: Emergency Medicine; Hospitalist; Internal Medicine; Internal Medicine Pulmonary Disease; Nurse Practitioner Acute Care; Pediatrics; ADMIT Hospitalist
PROC: 30233N1 Transfusion of Nonautologous Red Blood Cells into Peripheral Vein, Percutaneous Approach (ICD-10-PCS; principal; 2019-09-09)
PROC: 05HY33Z Insertion of Infusion Device into Upper Vein, Percutaneous Approach (ICD-10-PCS; principal; 2019-09-09)
PROC: 0B21XFZ Change Tracheostomy Device in Trachea, External Approach (ICD-10-PCS; principal; 2019-09-09)
PROC: 0BJ08ZZ Inspection of Tracheobronchial Tree, Via Natural or Artificial Opening Endoscopic (ICD-10-PCS; 2019-09-09)
PROC: B3111ZZ Fluoroscopy of Right Brachiocephalic-Subclavian Artery using Low Osmolar Contrast (ICD-10-PCS; 2019-09-09)
PROC: 03LY3ZZ Occlusion of Upper Artery, Percutaneous Approach (ICD-10-PCS; 2019-09-09)
PROC: 5A1955Z Respiratory Ventilation, Greater than 96 Consecutive Hours (ICD-10-PCS; 2019-09-10)
PROC: 5A09357 Assistance with Respiratory Ventilation, Less than 24 Consecutive Hours, Continuous Positive Airway Pressure (ICD-10-PCS; 2019-09-17)
PROC: 5A09357 Assistance with Respiratory Ventilation, Less than 24 Consecutive Hours, Continuous Positive Airway Pressure (ICD-10-PCS; 2019-09-18)
PROC: 5A09357 Assistance with Respiratory Ventilation, Less than 24 Consecutive Hours, Continuous Positive Airway Pressure (ICD-10-PCS; 2019-09-20)
PROC: 5A09357 Assistance with Respiratory Ventilation, Less than 24 Consecutive Hours, Continuous Positive Airway Pressure (ICD-10-PCS; 2019-09-21)
PROC: 5A09357 Assistance with Respiratory Ventilation, Less than 24 Consecutive Hours, Continuous Positive Airway Pressure (ICD-10-PCS; 2019-09-22)
PROC: 5A09357 Assistance with Respiratory Ventilation, Less than 24 Consecutive Hours, Continuous Positive Airway Pressure (ICD-10-PCS; 2019-09-23)
PROC: 5A09357 Assistance with Respiratory Ventilation, Less than 24 Consecutive Hours, Continuous Positive Airway Pressure (ICD-10-PCS; 2019-09-24)
PROC: 5A09357 Assistance with Respiratory Ventilation, Less than 24 Consecutive Hours, Continuous Positive Airway Pressure (ICD-10-PCS; 2019-09-25)
PROC: 5A09357 Assistance with Respiratory Ventilation, Less than 24 Consecutive Hours, Continuous Positive Airway Pressure (ICD-10-PCS; 2019-09-26)
DX: A41.9 Sepsis, unspecified organism (principal); J18.9 Pneumonia, unspecified organism; J96.21 Acute and chronic respiratory failure with hypoxia; R53.2 Functional quadriplegia; R04.2 Hemoptysis; J95.01 Hemorrhage from tracheostomy stoma; E46 Unspecified protein-calorie malnutrition; G40.909 Epilepsy, unspecified, not intractable, without status epilepticus; K21.9 Gastro-esophageal reflux disease without esophagitis; S06.9X0A Unspecified intracranial injury without loss of consciousness, initial encounter; R74.0 Nonspecific elevation of levels of transaminase and lactic acid dehydrogenase [LDH]; D72.829 Elevated white blood cell count, unspecified; G93.89 Other specified disorders of brain; I95.9 Hypotension, unspecified; E87.6 Hypokalemia; D64.9 Anemia, unspecified; R23.3 Spontaneous ecchymoses; Z90.49 Acquired absence of other specified parts of digestive tract; Z90.81 Acquired absence of spleen; Z88.6 Allergy status to analgesic agent; Z88.0 Allergy status to penicillin; Z88.2 Allergy status to sulfonamides; Z74.01 Bed confinement status; Z91.040 Latex allergy status; Z68.29 Body mass index [BMI] 29.0-29.9, adult; X58.XXXA Exposure to other specified factors, initial encounter; Y93.89 Activity, other specified; Y92.89 Other specified places as the place of occurrence of the external cause; Y99.8 Other external cause status
CPT/HCPCS: 10078; 10779; 10879; 27000

== ENCOUNTER → 2019-10-10 | Outpatient (CLI) | payer OTHER ==
[~2019-10-10] MED LIST changes: +LEVAQUIN 500 M500 M3 PO; +METRONIDAZOLE500 M4 PO
== END ==
LOC: RAD 13:00
DX: R05 Cough (principal); R06.00 Dyspnea, unspecified

== ENCOUNTER 2020-07-02 17:26 | Inpatient (IN) | payer OTHER, MEDICAID ==
[~2020-07-02] VITALS: Ht 182.9 cm; Wt 95.3 kg
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
[2020-07-02 17:27] VITALS: BP 117/68
[2020-07-02 18:06] LABS: URINE BILIRUBIN NEGATIVE (Negative); URINE BLOOD NEGATIVE (Negative); URINE CLARITY CLEAR; URINE COLOR YELLOW; URINE GLUCOSE-RANDOM* NEGATIVE (Negative); URINE KETONES NEGATIVE (Negative); URINE LEUKOCYTES-REFLEX NEGATIVE (Negative); URINE NITRITE-REFLEX NEGATIVE (Negative); URINE PROTEIN (DIPSTICK) NEGATIVE (Negative); URINE SPECIFIC GRAVITY <= 1.005 (1.005-1.035); URINE UROBILINOGEN 0.2 E.U./dl (0.2-1.0)
[2020-07-02] MEDS ORDERED: CIPRO500 M1 PO (19:35)
[2020-07-02 19:41] LABS: HEMATOCRIT 42.8 % (42.0-52.0); HEMOGLOBIN 14.3 gm/dL (14.0-18.0); MCHC 33.4 g/dL (28.0-37.0); MCV 95.7 fL (80.0-100.0); RBC 4.47 mil/uL (4.50-6.00); RDW 13.9 % (10.5-14.5)
[2020-07-02 19:50] LABS: CALCIUM 8.5 mg/dL (8.5-10.1); CREATININE 0.4 mg/dL (0.7-1.3)
[2020-07-02 19:56] LABS: ALBUMIN 2.6 g/dL (3.4-5.0); TOTAL BILIRUBIN 0.6 mg/dL (0.2-1.0); TOTAL PROTEIN 7.7 g/dL (6.4-8.2)
--- NOTE | 2020-07-02 20:12 | NUR ---
AFTER SPEAKING WITH ADMITTING [employer], IT WAS DETERMINED THAT PATIENT WILL REQUIRE RULE OUT FOR COVID. AT THIS POINT, PATIENT IS PLACED ON ISOLATION PRECAUTIONS AND MOTHER WAS ASKED TO LEAVE THE PATIENT ROOM.\ EDUCATION PROVIDED REGARDING RESULTS AND TIMELINE FOR WHEN PATIENT WILL BE ALLOWED VISITORS AFTER NEGATIVE RESULTS AND BED PLACEMENT ON A UNIT THAT IS NOT COVID RULE OUT. MOTHERS NAME, ASAEL ETIENNE [phone]. MOTHER REQUESTING BREATHING TREATMENTS AND STATES PATIENT IS NOT TO BE DEEP SUCTIONED THEY DO NOT DO THAT AT HOME, HE HAS A STRONG COUGH AND DEEP SUCTIONING CAN INDUCE SEIZURE ACTIVITY IN PATIENT
[2020-07-02 21:29] VITALS: BP 124/77
[2020-07-02 22:31] VITALS: BP 113/68
[2020-07-02 23:20] VITALS: BP 110/72
--- NOTE | 2020-07-03 01:20 | NUR ---
PATIENT'S MOTHER NOTIFIED OF BED ASSIGNMENT AND NURSE'S STATION PHONE NUMBER FOR PATIENT
--- NOTE | 2020-07-03 01:30 | NUR ---
NOTIFIED 3WEST NURSEGERSON OF PATIENT'S MOTHER'S INSTRUCTIONS THAT PATIENT DOES NOT GET DEEP SUCTIONED AT ALL IT WILL RESULT IN INDUCING SEIZURES. NOTIFIED NURSE OF MOTHER'S CONTACT INFORMATION AND THAT MOTHER HAD BEEN GIVEN INSTRUCTIONS REGARDING VISITOR RESTRICTIONS WHILE PATIENT IS UNDER INVESTIGATION FOR COVID. MOTHER: ASAEL ETIENNE [phone]
[2020-07-03] MEDS ORDERED: TYLENOL EXTRA500 MG PO (04:30)
[2020-07-03] MEDS ORDERED: GENTEAL TEARS3.5 GM EA. EYE (04:34)
[2020-07-03 05:41] VITALS: BP 111/86
[2020-07-03 08:00] VITALS: BP 105/70
--- NOTE | 2020-07-03 09:03 | NUR ---
Tube feed recommendations: jevity 1.5, 100ml/hr x 10hr/day and mix 1 packet beneprotein in 240ml water flush tid
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
[2020-07-03 17:19] VITALS: BP 112/69
--- NOTE | 2020-07-03 19:10 | NUR ---
ASSUMED PATIENT CARE AT 0700. UNRESPONSIVE. SUCTION NEEDS. LOW TEMP. IST COVID PCR NEGATIVE. 2ND COVID SENT TO LAB. PATIENT TOLERATED ON TF. WILL KEEP MONITOR.
[2020-07-03 19:28] LABS: HEMATOCRIT 44.2 % (42.0-52.0); MCH 32.7 pg (26.0-34.0); MCHC 34.1 g/dL (28.0-37.0); RBC 4.6 mil/uL (4.50-6.00); RDW 14.3 % (10.5-14.5); WBC 8.8 thou/uL (4.0-11.0)
[2020-07-03 19:33] VITALS: BP 101/64
[2020-07-03 19:44] LABS: ALBUMIN 2.5 g/dL (3.4-5.0); CALCIUM 8.1 mg/dL (8.5-10.1); CREATININE 0.3 mg/dL (0.7-1.3); POTASSIUM 4.1 mmol/L (3.5-5.1); TOTAL BILIRUBIN 0.5 mg/dL (0.2-1.0); TOTAL PROTEIN 7.6 g/dL (6.4-8.2)
--- NOTE | 2020-07-04 04:27 | NUR ---
Pt. is nonverbal , eyes open at times. Trach mask , loose cough , suctioned prn. Afebrile , cont. on enhanced precaution pending COVID results. Repositioned prn per mom's request not to turn frequently. Tolerated tube feeding well with minimal gastric residual. External cath in placed. Rested well during the night.
[2020-07-04 05:24] VITALS: BP 111/67
[2020-07-04 05:45] LABS: HEMATOCRIT 41.6 % (42.0-52.0); MCH 32.3 pg (26.0-34.0); MCHC 33.7 g/dL (28.0-37.0); MCV 95.8 fL (80.0-100.0); PLATELET COUNT 336 thou/uL (150-400); RBC 4.34 mil/uL (4.50-6.00); RDW 13.9 % (10.5-14.5); WBC 8.3 thou/uL (4.0-11.0)
[2020-07-04 07:50] VITALS: BP 103/51
[2020-07-04 10:39] LABS: LARGE PLATELETS OCCASIONAL
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
--- NOTE | 2020-07-04 12:26 | NUR ---
JONNY reviewed chart and spoke with nursing and attending physician. Pt remains in Enhanced Isolation to r/o COVID-19. Pt's second test is pending. SW faxed clinical info/COVID test results to [facility] for review. JONNY spoke with intake to notify of fax. Pt will need orders to resume services (RN/SALON ASSISTANT) when discharged. JONNY is following to assist as needed with discharge planning.
[2020-07-04 15:32] VITALS: BP 109/65
--- NOTE | 2020-07-04 16:54 | NUR ---
ASSUMED CARE OF PT AT 0700. PT NON VERBAL, NON INTERACTIVE. NO APPARENT DISTRESS. VITALS STABLE. AFEBRILE. TOLERATING TUBE FEEDINGS WELL. C19 RESULTS NEGATIVE - PHYSICIAN AWARE. TURNED PRN. SPOKE WITH MOTHER WHO WANTS TO LIMIT AMOUNT OF TURNS TO PREVENT SEIZURE ACTIVITY. CONDOM CATH IN PLACE. WAITING ON BED TO TRANSFER. STILL REQUIRING 35% FIO2.
[2020-07-04 19:45] VITALS: BP 117/74
--- NOTE | 2020-07-05 02:24 | NUR ---
PT TRANSFERED TO THE UNIT AT 0200. PT IS AWAKE AND UNRESPONSIVE. PT LUNGS ARE COARSE ON AUSCULTATION. FALL PRECAUTIONS AND SEIZURE PRECAUTIONS ARE IN PLACE. PT IS LYING WITH HOB AND FEET ELEVATED. WILL CONTINUE TO MONITOR.
[2020-07-05 07:51] VITALS: BP 108/64
--- NOTE | 2020-07-05 14:58 | NUR ---
CARE TEAM INDICATED THAT PT IS PROGRESSING TOWARD GOAL OF DISCHARGE HOME. CARE TEAM INDICATED THAT PT WILL LIKELY BE MEDICALLY STABLE TO DC HOME TOMORROW. CM TO FOLLOW INDICATED WITH DC PLANNING.
--- NOTE | 2020-07-05 16:37 | NUR ---
PT CARE ASSUMED APPROX 0700. ASSESSMENT CHARTED. PT DOES NOT APPEAR TO BE IN ANY PAIN. VSS. TURNING APPROX Q4 HRS. PT'S MOTHER WANTS PT TURNED ONLY ONCE PER SHIFT. PT'S MOM EDUCATED BUT CONTINUES TO REQUEST LESS FREQUENT TUNRS THAN Q2. PT HAVING LOTS OF BEIGE SECRETIONS. PT DOING WELL WITH EXPECTORATING SECRETIONS. CONT PULSE OX PUT ON PT FOR SAFETY AND MONITORING. CLINICAL UPDATE GIVEN TO PT'S MOTHER. SHE DENIED CONCERNS. MESSAGE FORWARDED TO DR YOUNG TO CALL HER TODAY. PT TOLERATING POC. NO DISTRESS NOTED.
[2020-07-05 19:21] VITALS: BP 123/71
--- NOTE | 2020-07-06 05:27 | NUR ---
Assumed pt care at 1900. Pt is awake,nonverbal, VSS.Lung sounds coarse with thick mucus from Trach which pt is able to coough out;suction around shield done as needed. No s/sx of pain noted w/ movement. Peg tube patent with 50cc residual noted,TF off at this time as ordered. Condom cath in place and patent. Continues on IV Abts w/o any ADR noted. Fall precautions in place,resting w/o distress on Trach shield. Will continue to monitor pt.
[2020-07-06 07:21] VITALS: BP 111/73
--- NOTE | 2020-07-06 13:41 | NUR ---
Assumed pt care at 7am.Assessment completed.vss.Pt in bed with trach shield with 35% fio2.Repositioned q2h for comfort.Meds given per peg tube and well tolerated.Oral care done as needed.Suction done by RT.No soa or difficult breathing noted.Mom at bs at present visiting.Fall bundle in place. Will continue to monitor.
[2020-07-06 15:45] VITALS: BP 99/61
--- NOTE | 2020-07-06 16:34 | NUR ---
CARE TEAM INDICATED NO WEEKEND DC ANTICPATED. CM TO FOLLOW INDICATED WITH DC HOME ONCE MEDICLLY STABLE.
[2020-07-06 19:30] VITALS: BP 111/75
[2020-07-07 05:32] LABS: HEMATOCRIT 44.9 % (42.0-52.0); HEMOGLOBIN 15.1 gm/dL (14.0-18.0); MCH 32.4 pg (26.0-34.0); MCHC 33.6 g/dL (28.0-37.0); MCV 96.3 fL (80.0-100.0); RBC 4.66 mil/uL (4.50-6.00); RDW 14.1 % (10.5-14.5); WBC 8.8 thou/uL (4.0-11.0)
--- NOTE | 2020-07-07 05:33 | NUR ---
VSS-AFEBRILE. RESTED WELL THROUGH NIGHT WITH FEW NEEDS. MODERATE AMOUNT OF THICK, YELLOW SPUTUM SUCTIONED. ORAL CARE PERFORMED TWICE OVERNIGHT. CONDOM CATHETER DRAINING ADEQUATE AMOUNTS OF YELLOW URINE TO DEPENDENT DRAINAGE BAG. FALL PRECAUTIONS IN PLACE.
[2020-07-07 06:07] LABS: CALCIUM 8.7 mg/dL (8.5-10.1); CREATININE 0.4 mg/dL (0.7-1.3); POTASSIUM 4.1 mmol/L (3.5-5.1)
[2020-07-07 07:18] VITALS: BP 112/64
--- NOTE | 2020-07-07 15:44 | NUR ---
VASCULAR ACCESS CONSULTED FOR ML FOR HOME ABX. KATHERINE CEPHALIC WAS WIDELY PATENT WITH USG. DISCUSSED BENEFITS AND RISK WITH MOTHER, VERBALIZED UNDERSTANDING AND GAVE VERBAL CONSENT. 4FR POWER MIDLINE TRIMMED TO 16CM INSERTED TO 0CM WITH BRISK BR. PT TOLERATED WELL. ML RELEASED FOR IMMEDIATE USE PER PROTOCOL TO MARLENE SCHAFFER
[2020-07-07 15:48] VITALS: BP 105/69
--- NOTE | 2020-07-07 16:11 | NUR ---
Assumed pt care at 7am.Pt in bed sleeping on and off but repositioned as needed for comfort.Assessment completed.vss.Trach suction done as needed. Dr Barth here and Asael here,order noted.Mom at bs most of the time this shift assisting with care.Midline placed by iv team for iv atb when ready for dc home.Pt on 35% fio2 per trach shield with breathing treatment scheduled q4h. Resting peaceful at this time.Will continue to monitor.
[2020-07-07 20:36] VITALS: BP 105/69
--- NOTE | 2020-07-08 05:20 | NUR ---
Pt. rested quietly during the night when checked on during frequent rounds. He is non-verbal. O2 saturations have been consistently in the mid 90's. Bed alarm is on.
[2020-07-08 07:26] LABS: ABSOLUTE NEUTROPHILS 5.3 thou/uL (1.4-8.2); BASOPHILS 1.3 % (0.0-2.0); EOSINOPHILS 5.7 % (0.0-3.0); HEMATOCRIT 45.7 % (42.0-52.0); HEMOGLOBIN 15.1 gm/dL (14.0-18.0); LYMPHOCYTES 24.8 % (24.0-44.0); MCHC 33.1 g/dL (28.0-37.0); MCV 96.6 fL (80.0-100.0); MONOCYTES 8.6 % (1.0-8.0); PLATELET COUNT 397 thou/uL (150-400); POLYS 59.6 % (36.0-66.0); RBC 4.72 mil/uL (4.50-6.00); RDW 14.3 % (10.5-14.5)
[2020-07-08 07:35] LABS: CALCIUM 8.9 mg/dL (8.5-10.1); CREATININE 0.3 mg/dL (0.7-1.3); POTASSIUM 4.1 mmol/L (3.5-5.1)
[2020-07-08 08:06] VITALS: BP 103/69
--- NOTE | 2020-07-08 14:50 | NUR ---
Assumed pt care at 7am.Pt in bed with labored breathing and constant coughing with copius large secretion from trach.Sample sent to lab.Trach suction done several times and Rt paged for breathing treatment.Dr Barth was in the room during this time rounding on pt.Breathing was better with o2 sat after treatment.Mom at bs assisting with care.Meds given as ordered.Tube feeding in progress.Pt sleeping comfortable at present with 35% fio2. Repositioned as needed for comfort.Will continue to monitor.
[2020-07-08 19:29] VITALS: BP 114/69
--- NOTE | 2020-07-09 03:04 | NUR ---
patient is non verbal. patient is has trach mask no soa or distress noted this shift, o2 sat is 98% at this time. patient turned q 2 hours. patient is incontinent pericare and barrier cream applied as needed. patient in bed asleep at this time breathing regular and unlaboured.
[2020-07-09 06:01] LABS: ABSOLUTE NEUTROPHILS 4.2 thou/uL (1.4-8.2); EOSINOPHILS 7.8 % (0.0-3.0); HEMATOCRIT 46.9 % (42.0-52.0); HEMOGLOBIN 15.5 gm/dL (14.0-18.0); LYMPHOCYTES 29.3 % (24.0-44.0); MCH 31.6 pg (26.0-34.0); MCHC 33.1 g/dL (28.0-37.0); MCV 95.6 fL (80.0-100.0); MONOCYTES 8.2 % (1.0-8.0); PLATELET COUNT 417 thou/uL (150-400); POLYS 53.7 % (36.0-66.0); RDW 14.3 % (10.5-14.5); WBC 7.8 thou/uL (4.0-11.0)
[2020-07-09 06:24] LABS: CREATININE 0.5 mg/dL (0.7-1.3); POTASSIUM 4.4 mmol/L (3.5-5.1)
[2020-07-09 07:37] VITALS: BP 112/80
[2020-07-09 11:19] VITALS: BP 112/80
--- NOTE | 2020-07-09 13:42 | NUR ---
Assumed patient care at 0715. Vital signs stable, crackles auscultated in lung loya, copious amounts of stringy yellowish phlegm removed by RT and this nurse throughout this shift thus far. Peg Tube checked for patency; 10mL residual noted prior to medications this am. Jevity 1.5 running at 100mL's per hour. Patient does not appear to be in any distress. Condom cath is patent with maribel colored urine noted in catheter bag. No adverse reactions noted from IV ABT therapy. Mother called to check on her son. This nurse replied back. Will continue to monitor.
[2020-07-09 15:17] VITALS: BP 131/72
--- NOTE | 2020-07-09 15:53 | NUR ---
CM SPOKE WITH PT'S MOTHER/CAREGIVER SHE WAS AWARE OF PT NEEDING IV ABX UPON DC. CM SENT REFERRAL TO [facility] THEY ARE OON. REFERRAL SENT TO [facility] ([facility]). PT'S IV ABX AND SUPPLIES ARE COVERED AT 100%. CM NOTIFIED PT'S MOM. CM UPDATED [facility] SPOKE WITH JANINE. THEY ARE ACCEPTING. [facility] DOESN'T HAVE DRUG IN STOCK THEY HAVE ORDERED IT AND IT WILL BE IN TOMORROW. DEBBY MILLER WILL BE HERE TO DO BEDSIDE TEACH TOMORROW BETWEEN 11:30-12:00. CM TO FAX FINAL ORDERS TO [facility] AND [facility] ONCE COMPLETED AND WILL SET UP DC TRANSPORT SHORTLY AFTER BEDSIDE TEACH. CM TO FOLLOW INDICATED WITH DC PLANNING.
[2020-07-09 20:05] VITALS: BP 129/71
--- NOTE | 2020-07-10 03:52 | NUR ---
CARE ASSUMED AT 1900 PATIENT WAS IN BED AWAKE. PATIENT IS NON VERBAL. PATIENT HAD SEVERAL SUCTIONS THIS SHIFT WITH THICK YELLOW MUCUS. FEEDING TUBE TURNED OFF AT AROUND 2100. PATIENT TURNED Q 2 HOURS.02 SAT IS 99% AT THIS TIME. PATIENT IN BED ASLEEP AT THIS TIME BREATHING REGULAR AND UNLABOURED.
[2020-07-10 07:48] VITALS: BP 124/76
--- NOTE | 2020-07-10 12:55 | NUR ---
PT DISCHARGING TO HOME WITH [facility] FAXED DC ORDERS/SUMMARY SPOKE WITH ANUSHKA IN INTAKE SHE RECEIVED DC ORDERS AND WILL NOTIFY PT TIME OF VISITS.
[2020-07-10 14:56] VITALS: BP 112/80
--- NOTE | 2020-07-10 14:59 | NUR ---
DEBBY CARVAJAL [facility] COMPLETED BEDSIDE TEACH WEI PT THIS AM. MOTHER DID WELL. PT IS DUE DOSE OF IV ABX AT 1400THIS AFTERNOON. CM SET UP [facility] TRANPORT FOR 1600. ORDERS SENT TO [facility] AND [facility]. PT HAS ALL RECOMMENDED DME AT HOME. NO OTHER CM INTERVENTION INDICATED. CASE CLOSED.
--- NOTE | 2020-07-10 17:56 | NUR ---
Assumed pt care this am, pt is non verbal and a total care. PEG tube patent, medications crushed and given via PEG tube. Refused Q2 turns by the mother coz pt will have "seizures" FC in place draiing yellow urine. Water flushed done, diet and medications are well tolerated. IV removed, midline is place and patent to be used for home health. POC followed, no signs or ldistress noted, picked up by ANTHONY mother was at the bedside.
== END 2020-07-10 18:11 | disposition home health service (06) | DRG 193 ==
LOC: ER 17:26 → EROBS 20:08 → 3W 20:08 → 4W 07-05 02:17
PROVIDERS: Internal Medicine; Nurse Practitioner; Nurse Practitioner Family; Specialist; Student in an Organized Health Care Education/Training Program; ADMIT Hospitalist; ATTEND Hospitalist
PROC: 05HD33Z Insertion of Infusion Device into Right Cephalic Vein, Percutaneous Approach (ICD-10-PCS; principal; 2020-07-07)
PROC: B54MZZA Ultrasonography of Right Upper Extremity Veins, Guidance (ICD-10-PCS; principal; 2020-07-07)
DX: J18.9 Pneumonia, unspecified organism (principal); R53.2 Functional quadriplegia; N39.0 Urinary tract infection, site not specified; Z16.39 Resistance to other specified antimicrobial drug; G40.909 Epilepsy, unspecified, not intractable, without status epilepticus; G93.89 Other specified disorders of brain; I95.9 Hypotension, unspecified; E86.0 Dehydration; K21.9 Gastro-esophageal reflux disease without esophagitis; Z20.828 Contact with and (suspected) exposure to other viral communicable diseases; Z93.0 Tracheostomy status; Z90.49 Acquired absence of other specified parts of digestive tract; Z87.820 Personal history of traumatic brain injury; Z90.81 Acquired absence of spleen; Z79.899 Other long term (current) drug therapy; Z88.5 Allergy status to narcotic agent; Z88.0 Allergy status to penicillin; Z88.2 Allergy status to sulfonamides; Z91.040 Latex allergy status; Z74.01 Bed confinement status
CPT/HCPCS: 10040; 10080; 27000

== ENCOUNTER 2021-08-10 07:43 | Inpatient (IN) | payer OTHER, MEDICAID ==
[~2021-08-10] VITALS: Ht 185.4 cm; Wt 98.0 kg
[2021-08-10] VITALS (36 sets, daily range): BP systolic 99–139; BP diastolic 74–88
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
[~2021-08-10 07:43] MED LIST changes: +CIPRO500 M1 PO; +GENTEAL TEARS3.5 GM EA. EYE; +TYLENOL EXTRA500 MG PO
[2021-08-10 09:07] LABS: HEMATOCRIT 55.5 % (42.0-52.0); HEMOGLOBIN 18.9 gm/dL (14.0-18.0); MCH 32.5 pg (26.0-34.0); MCV 95.5 fL (80.0-100.0); PLATELET COUNT 330 thou/uL (150-400); RBC 5.81 mil/uL (4.50-6.00); RDW 13.8 % (10.5-14.5)
[2021-08-10 09:13] LABS: CALCIUM 8.6 mg/dL (8.5-10.1); CREATININE 0.7 mg/dL (0.7-1.3); POTASSIUM 4.5 mmol/L (3.5-5.1)
[2021-08-10 09:17] LABS: URINE BILIRUBIN NEGATIVE (Negative); URINE BLOOD NEGATIVE (Negative); URINE CLARITY SL CLOUDY; URINE COLOR YELLOW; URINE GLUCOSE-RANDOM* NEGATIVE (Negative); URINE KETONES NEGATIVE (Negative); URINE LEUKOCYTES-REFLEX TRACE (Negative); URINE PROTEIN (DIPSTICK) TRACE (Negative); URINE SPECIFIC GRAVITY <= 1.005 (1.005-1.035)
[2021-08-10 09:19] LABS: ALBUMIN 3.2 g/dL (3.4-5.0); TOTAL BILIRUBIN 2.9 mg/dL (0.2-1.0); TOTAL PROTEIN 8.8 g/dL (6.4-8.2)
[2021-08-10 09:29] LABS: URINE NITRITE-REFLEX POSITIVE (Negative)
[2021-08-10 09:53] LABS: CASTS None Seen /LPF (None Seen); SQUAMOUS 0-3 Few /LPF (0-3); URINE RBC None Seen /HPF (NONE SEEN); URINE WBC-REFLEX 0-5 Rare /HPF (0-5)
[2021-08-10 09:54] LABS: BACTERIA-REFLEX >30 Many /HPF (None Seen); CRYSTALS None Seen /LPF (None Seen)
[2021-08-10 09:58] LABS: ABSOLUTE NEUTROPHILS 25.9 thou/uL (1.4-8.2)
[2021-08-10 10:36] LABS: BE(vivo) -6.8 mmol/L (-2 to +3); HCO3 14.9 mmol/L (22.0-26.0); PCO2 VENOUS 22.9 mmHg (41.0-51.0); PO2 VENOUS 86.9 mmHg (35.0-45.0)
[2021-08-10 14:15] LABS: HEMATOCRIT 51.6 % (42.0-52.0); HEMOGLOBIN 17.4 gm/dL (14.0-18.0); MCH 32.3 pg (26.0-34.0); MCHC 33.6 g/dL (28.0-37.0); MCV 96.1 fL (80.0-100.0); PLATELET COUNT 300 thou/uL (150-400); RBC 5.37 mil/uL (4.50-6.00); RDW 14.4 % (10.5-14.5); WBC 21.6 thou/uL (4.0-11.0)
[2021-08-10 14:53] LABS: ABSOLUTE NEUTROPHILS 19.4 thou/uL (1.4-8.2)
[2021-08-10 14:55] LABS: TOXIC GRANULATION NONE SEEN
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
[2021-08-11] VITALS (85 sets, daily range): BP systolic 93–129; BP diastolic 57–102
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
[2021-08-11 05:06] LABS: ALBUMIN 2.3 g/dL (3.4-5.0); CREATININE 0.5 mg/dL (0.7-1.3); TOTAL BILIRUBIN 1.8 mg/dL (0.2-1.0); TOTAL PROTEIN 6.9 g/dL (6.4-8.2)
[2021-08-11 05:18] LABS: HEMATOCRIT 46.9 % (42.0-52.0); HEMOGLOBIN 15.5 gm/dL (14.0-18.0); MCH 32.5 pg (26.0-34.0); MCHC 33.1 g/dL (28.0-37.0); MCV 98.1 fL (80.0-100.0); RBC 4.78 mil/uL (4.50-6.00); RDW 13.9 % (10.5-14.5)
[2021-08-11 05:22] LABS: POTASSIUM 3.2 mmol/L (3.5-5.1)
--- NOTE | 2021-08-11 12:20 | NUR ---
SPOKE WITH PT'S MOTHER ON THE PHONE UPDATED REGARDING DECREASING LEVOPHED BP ALLOWS, REPLACING LOW POTASSIUM, NO FURTHER TWITCHING(SEIZURE ACTIVITY), PLAN FOR CT OF HEAD TODAY. DR. GIANG PRESENT SHE SPOKE WITH PT ALSO.
--- NOTE | 2021-08-11 12:29 | NUR ---
08/10 RIGHT IJ CENTRAL LINE WAS PLACED PER HOSPITAL POLICY. THE 25CM LINE WAS ADVANCED TO 6CM EXTERNAL. A STAT CHEST XRAY WAS ORDERED FOR CONFIRMATION
[2021-08-11 17:58] LABS: BE(vivo) -4.4 mmol/L (-2 to +3); HCO3 22.7 mmol/L (22.0-26.0); PO2 93.4 mmHg (80.0-100.0); pH 7.283 (7.360-7.450); sO2 96.2 % (92.0-98.0)
[2021-08-11 18:48] LABS: CALCIUM 7.2 mg/dL (8.5-10.1); CREATININE 0.4 mg/dL (0.7-1.3); POTASSIUM 3.2 mmol/L (3.5-5.1)
--- NOTE | 2021-08-11 19:43 | NUR ---
resp rate consistently-8. abg's obtained, then called to Dr. Dawkins. per md order at shift change vianney chino, rt removed uncuffed trach, then replaced with shiley #6 cuffed trach. placed pt on vent with fi02-40%, simv-13, peep-5, ps-6. bloody secretions obtained per trach. report given to KARIME Garcia.
[2021-08-11 20:34] LABS: BE(vivo) -4.4 mmol/L (-2 to +3); HCO3 22.8 mmol/L (22.0-26.0); PCO2 49.5 mmHg (35.0-45.0); PO2 143.3 mmHg (80.0-100.0); sO2 98.5 % (92.0-98.0)
[2021-08-11 20:35] LABS: pH 7.281 (7.360-7.450)
[2021-08-12] VITALS (55 sets, daily range): BP systolic 89–131; BP diastolic 51–90
[2021-08-12 04:42] LABS: BE(vivo) -0.7 mmol/L (-2 to +3); HCO3 23.9 mmol/L (22.0-26.0); PCO2 39.6 mmHg (35.0-45.0); PO2 84.9 mmHg (80.0-100.0); pH 7.399 (7.360-7.450); sO2 96.4 % (92.0-98.0)
--- NOTE | 2021-08-12 08:37 | NUR ---
REMAINS TRACHED AND VENTED FIO2 30 % IN A VEGETATIVE STATE FOLLOWS NO COMMANDS. NOT PROGRESSING TOWARD GOALS
[2021-08-12 10:01] LABS: HEMATOCRIT 42.6 % (42.0-52.0); HEMOGLOBIN 13.6 gm/dL (14.0-18.0); MCH 31.4 pg (26.0-34.0); MCV 98.2 fL (80.0-100.0); RBC 4.34 mil/uL (4.50-6.00); RDW 14.5 % (10.5-14.5)
[2021-08-12 10:53] LABS: ALBUMIN 2.2 g/dL (3.4-5.0); CALCIUM 7.4 mg/dL (8.5-10.1); CREATININE 0.3 mg/dL (0.7-1.3); POTASSIUM 3.2 mmol/L (3.5-5.1); TOTAL BILIRUBIN 0.6 mg/dL (0.2-1.0)
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
--- NOTE | 2021-08-12 17:30 | NUR ---
mother, Tamiko present. updated on labs and pt status. questions answered to satifaction.
[2021-08-13] VITALS (41 sets, daily range): BP systolic 93–141; BP diastolic 55–86
[2021-08-13 08:20] LABS: HEMATOCRIT 39.7 % (42.0-52.0); HEMOGLOBIN 12.8 gm/dL (14.0-18.0); MCH 31.4 pg (26.0-34.0); MCHC 32.3 g/dL (28.0-37.0); MCV 97.3 fL (80.0-100.0); RBC 4.08 mil/uL (4.50-6.00); RDW 14.3 % (10.5-14.5); WBC 17.8 thou/uL (4.0-11.0)
[2021-08-13 08:46] LABS: CALCIUM 7.1 mg/dL (8.5-10.1); CREATININE 0.3 mg/dL (0.7-1.3); POTASSIUM 3.5 mmol/L (3.5-5.1)
--- NOTE | 2021-08-13 11:56 | 2DMMODE ---
[facility] [address] [place] [address] 2 D/M-MODE ECHOCARDIOGRAM Name: SHARON ETIENNE Room #: 238-P ADM IN M.R.#: [id number] Admission: 08/10/21 Attend Phys: Reny Swan MD Discharge: Date of : 69 Report #: [id number] THIS REPORT FOR: cc: Sami Ramirez MD, Timothy W. MD Lammoglia, Francisco J. MD ~ APPROVED REPORT Study performed: 08/13/2021 09:52:14 EXAM: Comprehensive 2D, Doppler, and color-flow Echocardiogram Patient Location: ICU Room #: 238 Status: routine BSA: 2.18 HR: 93 bpm BP: 116/70 mmHg Rhythm: NSR Other Information Study Quality: Technically Difficult Technically limited study due to patient on ventilator, inability to position patient. Indications Sepsis 2D Dimensions IVSd: 11.59 (7-11mm) LVOT Diam: 22.48 (18-24mm) LVDd: 56.40 mm PWd: 11.53 (7-11mm) Ascending Ao: 31.12 (22-36mm) LVDs: 38.02 (25-40mm) Left Atrium: 36.49 (27-40mm) Aortic Root: 33.42 mm Aortic Valve AoV Peak Prabhu.: 1.50 m/s AO Peak Gr.: 9.05 mmHg LVOT Max P.74 mmHg LVOT Max V: 1.09 m/s MIREYA Vmax: 2.87 cm2 Pulmonary Valve PV Peak Prabhu.: 1.35 m/s PV Peak Gr.: 7.30 mmHg [facility] [address] [place] [address] 2 D/M-MODE ECHOCARDIOGRAM Name: SHARON ETIENNE Room #: 238-P ADM IN M.R.#: [id number] Admission: 08/10/21 Attend Phys: Trisha Oviedo Discharge: Date of : 69 Report #: [id number] Left Ventricle The left ventricle is normal size. There is normal LV segmental wall motion. There is normal left ventricular wall thickness. Left ventricular systolic function is normal. The left ventricular ejection fraction is within the normal range. LVEF is 55-60%. The left ventricular diastolic function is normal. Right Ventricle The right ventricle is normal size. The right ventricular systolic function is normal. Atria The left atrium size is normal. The right atrium size is normal. Aortic Valve The aortic valve is normal in structure. No aortic regurgitation is present. There is no aortic valvular stenosis. Mitral Valve The mitral valve is normal in structure. There is no mitral valve regurgitation noted. No evidence of mitral valve stenosis. Tricuspid Valve The tricuspid valve is normal in structure. There is no tricuspid valve regurgitation noted. Pulmonic Valve The pulmonary valve is normal in structure. There is no pulmonic valvular regurgitation. Great Vessels The aortic root is normal in size. IVC is normal in size and collapses >50% with inspiration. Pericardium There is no pericardial effusion. <Conclusion> The left ventricle is normal size.B Borderline concentric left ventricular hypertrophy. LVEF is 55-60%. The right ventricle is normal size. The left atrium size is normal. The aortic valve is normal in structure. The mitral valve is normal in structure. [facility] [address] [place] [address] 2 D/M-MODE ECHOCARDIOGRAM Name: SHARON ETIENNE Room #: 238-P [facility] IN ..#: [id number] Admission: 08/10/21 Attend Phys: Trisha Oviedo Discharge: Date of : 69 Report #: [id number] The tricuspid valve is normal in structure. The pulmonary valve is normal in structure. The aortic root is normal in size. There is no pericardial effusion. <ELECTRONICALLY SIGNED> By: Nato Quiles MD 08/13/21 1156 1156 1156 Nato Quiles MD /INF
[2021-08-13 12:26] LABS: BE(vivo) 0.1 mmol/L (-2 to +3); HCO3 25.2 mmol/L (22.0-26.0); PCO2 42.8 mmHg (35.0-45.0); PO2 107.6 mmHg (80.0-100.0); pH 7.388 (7.360-7.450); sO2 97.9 % (92.0-98.0)
[2021-08-14] VITALS (29 sets, daily range): BP systolic 103–134; BP diastolic 63–101
[2021-08-14] MEDS ORDERED: PREDNISONE 20 M20 M1 PO (11:21)
[2021-08-14] MEDS ORDERED: IPRAT-ALBUT 0.5-3 ML INH (11:21)
--- NOTE | 2021-08-14 14:39 | NUR ---
spoke with herb mom this am, r/t dc home with iv abx and hh. She agree with dcp and requested to have dc tomorrow r/t her sister is here also in hospital and going to be moved to rehab today and would like to be able to be home with herb all day when he get home. Discussed with hospitalist. Dc tomorrow with home IV infusion and hh. Referral sent to [facility]) for merrem 1 gm IV q 8 hours x 10 days, weekly labs.
--- NOTE | 2021-08-14 18:19 | NUR ---
PATIENT TRANSFERRED FROM ICU TO ROOM 203 AT 1815. TRACH SHIELD PLACED AT 35%. TUBE FEEDING TUBING CHANGED, RUNNING VITAL 1.5 AT GOAL OF 40ML.
--- NOTE | 2021-08-14 19:02 | NUR ---
RN TO RN REPORT COMPLETE. PT TRANSFERS TO CCU RM 203 TODAY. HE HAS ELIZABETH, VSS, AND HE IS OXYGENATING ADEQUATELY FOR TRANSFER. HIS MOTHER IS INFORMED THAT HE IS TRANSFERRING TO RM 203. THE PT HAS A SWEATER THAT IS TRANSFERRED WITH HIM.
[2021-08-15 04:45] VITALS: BP 107/87
--- NOTE | 2021-08-15 05:50 | NUR ---
NO SIGNIFICANT CHANGES DURING THE NIGHT. SPO2 97-100% ON TRACH SHIELD WITH 35% FIO2. REPOSITIONED TO PREVENT SKIN BREAKDOWN. TF VIA PEG TUBE. MINIMAL RESIDUALS. VSS. PROGRESSING TOWARD POC GOALS.
[2021-08-15 07:50] VITALS: BP 126/78
[2021-08-15 11:23] VITALS: BP 146/83
--- NOTE | 2021-08-15 11:37 | NUR ---
PATIENT DISCHARGING TO HOME TODAY WITH IV ABX. DISCUSSED WITH THE NURSE AND A MIDLINE WAS ORDERED AND CENTRAL LINE REMOVED FOR HOME ANTIBIOTICS. THE 4F MIDLINE WAS PLACED IN THE LEFT BASILIC (35% VEIN VS CATHETER RATIO) PER HOSPITAL POLICY. THE LINE WAS TRIMMED TO 12CM AND ADVANCED WITHOUT DIFFICULTY. LINE SECURED AND RELEASED FOR USE
[2021-08-15] MEDS ORDERED: MEROPENEM1 GM IV (12:18)
[2021-08-15 12:33] VITALS: BP 146/83
[2021-08-15 12:57] VITALS: BP 146/83
--- NOTE | 2021-08-15 14:58 | NUR ---
Pt is dcing home today via [facility]. Ambulance transport arranged for 4pm however they indicate they are a couple of hours behind. Pt had last dose of iv atb at 2pm. Pt's mom Tamiko has been doing a video training session with [facility] this afternoon. Tamiko indicates that they have all needed dme/ enteral supplies and she feels comfortable with the video teaching as he has had iv atb in the past. Tamiko agreeable to the dc plan. Pt has been on room air today and using wall o2 per T-tube only for humdification. Nursing and RT confirmed this at bedside. DC orders faxed and confirmed with [facility] hh/intake as well as [facility]. All parties agreeable to the dc plan later this afternoon. The pt has humidified air at home. He does not use home o2.
[2021-08-15 15:34] VITALS: BP 109/72
--- NOTE | 2021-08-15 17:48 | NUR ---
TOOK OVER CARE OF PATIENT AT 0700. PATIENT NONVERBAL BUT RESPONSIVE TO PHYSICAL AND VERBAL STIMULI. PATIENT RESTING IN BED. PATIENT ON TRACH SHIELD ON ROOM AIR AND MAINTAINING OXYGEN SATURATION. SUCTIONING COMPLETED ON THIS PATIENT SEVERAL TIMES TO REMOVE THICK, WHITE, MUCUS. PLAN TO DISCHARGE TODAY PER DOCTORS ORDERS. HOSPITALIST CONCERNED ABOUT PATIENT NOT HAVING BOWEL MOVEMENT AND ORDERED LACTULOSE; GAVE PER ORDERS; PATIENT HAS LARGE LOOSE BOWEL MOVEMENT PRIOR TO DISCHARGE. PATIENT TRANSPORT VIA [facility]. PATIENT STABLE AT TIME OF DISCHARGE. DISCHARGE INSTRUCTIONS GIVEN TO MOTHER OF PATIENT PRIOR TO DISCHARGE.
== END 2021-08-15 17:33 | disposition home health service (06) | DRG 871 ==
LOC: ER 07:43 → ICU 09:57 → 2N 09:57 → EROBS 09:57 → ICU 13:55 → 2N 08-14 17:35
PROVIDERS: Emergency Medicine; Internal Medicine Pulmonary Disease; Pediatrics; ADMIT Hospitalist; ATTEND Hospitalist
DX: A41.2 Sepsis due to unspecified staphylococcus (principal); J18.9 Pneumonia, unspecified organism; J96.21 Acute and chronic respiratory failure with hypoxia; R65.21 Severe sepsis with septic shock; J96.22 Acute and chronic respiratory failure with hypercapnia; R53.2 Functional quadriplegia; N39.0 Urinary tract infection, site not specified; E87.1 Hypo-osmolality and hyponatremia; E87.2 Acidosis; K21.9 Gastro-esophageal reflux disease without esophagitis; G40.909 Epilepsy, unspecified, not intractable, without status epilepticus; E87.6 Hypokalemia; R74.01 Elevation of levels of liver transaminase levels; G93.89 Other specified disorders of brain; K29.70 Gastritis, unspecified, without bleeding; Z20.822 Contact with and (suspected) exposure to COVID-19; Z88.6 Allergy status to analgesic agent; Z90.49 Acquired absence of other specified parts of digestive tract; Z90.81 Acquired absence of spleen; Z87.820 Personal history of traumatic brain injury; Z93.1 Gastrostomy status; Z88.0 Allergy status to penicillin; Z88.2 Allergy status to sulfonamides; Z91.040 Latex allergy status
CPT/HCPCS: 10078; 10081; 27000

== ENCOUNTER 2021-08-17 05:31 | Inpatient (IN) | payer OTHER, MEDICAID ==
[2021-08-17] VITALS (7 sets, daily range): BP systolic 126–149; BP diastolic 76–94
[~2021-08-17] VITALS: Ht 187 cm; Wt 109.8 kg
--- NOTE | ~2021-08-17 | EMS ---
[facility] [address] [place] [address] EMS Patient Care Report Name: SHARON ETIENNE Room #: REG NOHEMI Acevedo#: [id number] Admission: 08/17/21 Attend Phys: Discharge: Date of : 69 Report #: [id number] THIS REPORT FOR: //name// Report Transmitted: 08/17/2021 06:36 EMS Care Summary [facility] MED-ACT Incident [id number] @ 08/17/2021 04:58 Incident Location [facility] [place] [address] Patient SHARON ETIENNE Male, 56 Years 1965 Patient Address [address] [place] [address] Patient History Other,Seizures,Urinary Tract Infection (UTI),Tracheostomy,Past Traumatic Brain Injury, Patient Allergies Codeine,Penicillin allergy,Sulfa, Patient Medications Ativan, Edith, Chief Complaint fever Disposition Transported No Lights/[place] [facility] Reason Convulsions/Seizure Transported To [facility] Narrative Arrived to find pt lying in bed. Pt is in a persistent vegetative state. Family state the pt was released from [facility] on where he was being treated for a UTI and sepsis. Family was instructed that if his fever went [facility] [address] [place] [address] EMS Patient Care Report Name: SHARON ETIENNE Room #: REG NOHEMI Acevedo#: [id number] Admission: 08/17/21 Attend Phys: Discharge: Date of : 69 Report #: [id number] over 101 they were to return the pt to the hospital. This morning the pt's fever was 101.1. Family also stated the pt had a distended abdomen for the past couple of days. Pt was lifted to the cot and placed in the position of comfort. Pt rested without change en route to [facility]. Pt was taken to [facility] upon arrival and care transferred to staffing manager with report. Initial Vitals @05:15P: 123,R: 24,BP: 106/74,Pain: 0/10,GCS: 3,Temp: 101.1F,SpO2: 95,Revised Trauma: 8, Impression Fever Timeline 04:55,Call Received 04:55,Psap Call 04:58,Dispatched 05:00,En Route 05:08,On Scene 05:09,At Patient 05:15,BP: 106/74 M,PULSE: 123,RR: 24 R,SPO2: 95 Ox,ETCO2: ,BG: ,PAIN: 0,GCS: 3, 05:23,Depart Scene 05:27,At Destination 05:46,Call Closed Disclaimer v1.1 Copyright 2020 [employer] This EMS Care Summary contains data elements from the applicable legal record (which may be displayed differently). It is designed to provide pertinent information for the following purposes: continuity of care, clinical quality, and state data reporting. The complete legal record is available to ED staff and administrators of the receiving hospital in [employer]'s Patient Tracker. All data is provided "as is."
--- NOTE | ~2021-08-17 | O ---
[facility] [place] [address] [place] [address] OPERATIVE REPORT Name: SHARON ETIENNE Room #: 209-P ADM IN M.R.#: [id number] Admission: 08/17/21 Attend Phys: Suki Duran MD Discharge: Date of : 69 Report #: [id number] THIS REPORT FOR: cc: Sami Ramirez MD, Timothy W. MD Patterson,Oliverio Jeffries MD ~ DATE OF SERVICE: 08/29/2021 PREOPERATIVE DIAGNOSIS: Respiratory failure with need for venous access. POSTOPERATIVE DIAGNOSIS: Respiratory failure with need for venous access. OPERATIONS: 1. Placement of right internal jugular vein Port-A-Cath. 2. Fluoroscopic guidance for Port-A-Cath placement. 3. Ultrasound guidance for Port-A-Cath placement. SURGEON: Oliverio Espinoza MD ANESTHESIA: General. ESTIMATED BLOOD LOSS: Minimal. SPECIMENS: None. DESCRIPTION OF PROCEDURE: After informed consent was obtained, the patient was brought to the operating room and placed supine. SCDs were placed and working, preoperative antibiotics were administered, general anesthesia was induced. The right neck and chest were prepped and draped in the usual sterile fashion. The right internal jugular vein was examined with the ultrasound. The IJ was widely patent. It was normal in size. The right IJ was cannulated under direct vision. Wire was placed, placement in the superior vena cava was confirmed with fluoroscopy. A pocket was made in the right chest. Catheter was then tunneled to the neck site. A dilator with sheath was placed over the wire, this was confirmed with fluoroscopy. Catheter was placed into the sheath and the sheath was peeled away. Catheter was then cut to 27 cm. It was attached to the reservoir and placed into the pocket. The skin was closed with a 2-0 Vicryl and a 4-0 Monocryl. Final placement of the Port-A-Cath was confirmed with fluoroscopy and it flushed easily with a Hu needle. COMPLICATIONS: None. [facility] [address] [place] [address] OPERATIVE REPORT Name: SHARON ETIENNE Room #: 209-P [facility] IN ..#: [id number] Admission: 08/17/21 Attend Phys: Suki Duran MD Discharge: Date of : 69 Report #: [id number] DISPOSITION: The patient was taken to recovery in satisfactory condition. By: [id number] Oliverio Espinoza MD /nt
[~2021-08-17 05:31] MED LIST changes: +IPRAT-ALBUT 0.5-3 ML INH; +MEROPENEM1 GM IV; +PREDNISONE 20 M20 M1 PO
[2021-08-17 05:56] LABS: URINE BILIRUBIN NEGATIVE (Negative); URINE BLOOD NEGATIVE (Negative); URINE CLARITY CLEAR; URINE COLOR YELLOW; URINE GLUCOSE-RANDOM* NEGATIVE (Negative); URINE KETONES NEGATIVE (Negative); URINE LEUKOCYTES-REFLEX NEGATIVE (Negative); URINE NITRITE-REFLEX NEGATIVE (Negative); URINE PROTEIN (DIPSTICK) NEGATIVE (Negative); URINE SPECIFIC GRAVITY 1.015 (1.005-1.035); URINE UROBILINOGEN 0.2 E.U./dl (0.2-1.0)
[2021-08-17 05:58] LABS: HEMOGLOBIN 14.9 gm/dL (14.0-18.0); MCH 31.5 pg (26.0-34.0); MCHC 33.2 g/dL (28.0-37.0); MCV 94.9 fL (80.0-100.0); PLATELET COUNT 213 thou/uL (150-400); RBC 4.74 mil/uL (4.50-6.00); RDW 14.2 % (10.5-14.5); WBC 21.3 thou/uL (4.0-11.0)
[2021-08-17 06:02] LABS: CALCIUM 7.8 mg/dL (8.5-10.1); CREATININE 0.4 mg/dL (0.7-1.3); POTASSIUM 3.7 mmol/L (3.5-5.1)
[2021-08-17 06:08] LABS: ALBUMIN 2.4 g/dL (3.4-5.0); TOTAL BILIRUBIN 0.7 mg/dL (0.2-1.0); TOTAL PROTEIN 6.6 g/dL (6.4-8.2)
[2021-08-17 07:18] LABS: ABSOLUTE NEUTROPHILS 15.3 thou/uL (1.4-8.2); ATYPICAL LYMPHS 2 %
[2021-08-17 07:20] LABS: TOXIC GRANULATION SLIGHT
[2021-08-17 07:55] LABS: LIPASE 210 U/L (73-393)
[2021-08-17 10:07] LABS: BE(vivo) 4.8 mmol/L (-2 to +3); HCO3 28.5 mmol/L (22.0-26.0); PCO2 39.3 mmHg (35.0-45.0); PO2 64.8 mmHg (80.0-100.0); pH 7.479 (7.360-7.450)
--- NOTE | 2021-08-17 19:24 | NUR ---
End shift note: Pt remained safe and comfortable, so no pain detected. ST on tele and temp slightly above normal limit. No feeding tube , PEG tube patente, good diuresis, remained on 14 L of oxygen on trach mask. Turned q2. POC to be continued.
[2021-08-18] VITALS: BP 115/73
[2021-08-18 04:07] VITALS: BP 130/71
[2021-08-18 04:49] LABS: HEMATOCRIT 39.5 % (42.0-52.0); MCH 31.7 pg (26.0-34.0); MCHC 32.7 g/dL (28.0-37.0); MCV 97.1 fL (80.0-100.0); RBC 4.07 mil/uL (4.50-6.00); RDW 14.1 % (10.5-14.5)
[2021-08-18 04:55] LABS: HEMOGLOBIN 12.9 gm/dL (14.0-18.0)
[2021-08-18 05:02] LABS: CALCIUM 7.5 mg/dL (8.5-10.1); CREATININE 0.3 mg/dL (0.7-1.3); POTASSIUM 3.7 mmol/L (3.5-5.1); TOTAL BILIRUBIN 0.9 mg/dL (0.2-1.0); TOTAL PROTEIN 5.9 g/dL (6.4-8.2)
--- NOTE | 2021-08-18 08:02 | NUR ---
PT reacts to painful stimule, vital signs within normal limits, pt had increased secretions from trach. Normal urine output and no bm during the shift. Mom was updated in person. Will continue to monitor.
[2021-08-18 08:08] VITALS: BP 111/69
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
[2021-08-18 11:03] VITALS: BP 100/60
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
[2021-08-18 15:30] VITALS: BP 118/81
--- NOTE | 2021-08-18 20:06 | NUR ---
End shift note: Uneventful shift. POC continued as ordered. Pt remainaed safe and comfortable.
[2021-08-18 20:09] VITALS: BP 111/72
--- NOTE | 2021-08-19 02:12 | NUR ---
PT ASSESSED AT START OF SHIFT. UNABLE TO FF VERBAL COMMAND, PT'S BASELINE. IV INTACT AND ABX GIVEN. MEDS CRSHED AND GIVEN VIA PEGTUBE. PT AWAKE. BLINKS EYE. CONDOM CATH IN PLACE. FALL PREC MAINTAINED AND REPORT GIVEN TO OTHER RN TO CONT CARE. PT STABLE.
--- NOTE | 2021-08-19 03:35 | NUR ---
RECEIVED REPORT FROM LULA RN.ASSUMED CARE AT 0150 AM.PT SLEEPING.BREATHING EVEN AND UNLABORED.MONITOR SHOWS SR.POC CONTINUED.
[2021-08-19 04:07] VITALS: BP 123/71
[2021-08-19 07:41] LABS: HEMATOCRIT 37.1 % (42.0-52.0); HEMOGLOBIN 12.2 gm/dL (14.0-18.0); MCH 31.5 pg (26.0-34.0); MCHC 32.8 g/dL (28.0-37.0); RBC 3.86 mil/uL (4.50-6.00); RDW 14.4 % (10.5-14.5); WBC 22.3 thou/uL (4.0-11.0)
[2021-08-19 07:58] LABS: ALBUMIN 1.8 g/dL (3.4-5.0); CALCIUM 7.6 mg/dL (8.5-10.1); CREATININE 0.3 mg/dL (0.7-1.3); POTASSIUM 3.4 mmol/L (3.5-5.1); TOTAL BILIRUBIN 0.9 mg/dL (0.2-1.0); TOTAL PROTEIN 5.4 g/dL (6.4-8.2)
[2021-08-19 09:01] VITALS: BP 107/75
[2021-08-19 12:03] VITALS: BP 121/75
[2021-08-19 15:22] VITALS: BP 120/68
--- NOTE | 2021-08-19 17:53 | NUR ---
End shift note: Pt remained safe and comfortable, hypothermic in the low 90's , warm blanket applied, HCP was aware, rest of VS WNL, turned Q2, isolation precaution initiated, PEG tube reinserted by mother, no new concerns. POC to be continued.
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
[2021-08-19 20:13] VITALS: BP 102/71
[2021-08-20 04:21] VITALS: BP 125/79
[2021-08-20 08:00] VITALS: BP 135/87
[2021-08-20 12:00] VITALS: BP 119/72
[2021-08-20 14:34] LABS: HEMATOCRIT 40.3 % (42.0-52.0); HEMOGLOBIN 12.9 gm/dL (14.0-18.0); MCH 31.4 pg (26.0-34.0); MCV 98.1 fL (80.0-100.0); RBC 4.11 mil/uL (4.50-6.00); RDW 14.8 % (10.5-14.5); WBC 22.4 thou/uL (4.0-11.0)
[2021-08-20 15:00] VITALS: BP 128/76
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
[2021-08-20 20:30] VITALS: BP 11/68
--- NOTE | 2021-08-21 04:01 | NUR ---
RECEIVED THIS PATIENT AT 1900H.PATIEN TIS NON VERBAL, BEDRIDDEN.WITH TRACHEOSTOMY TO TRACHE MASK AT 10LPM, 35% FIO2.WITH LEFT PEG TUBE INTACT, FEEDING RUNNING ORDERED.WITH CONDOM CATHETER INTACT DREAINING YELLOWISH URINE.WITH LEFT UPPER ARM MIDLINE INTACT.NO SIGNS OF PAIN.NOT IN DISTRESS. SUCTIONED SECRETIONS PRN.TURNED FROM SIDE TO SIDE.ALL NEEDS ATTENDED.
[2021-08-21 05:00] VITALS: BP 116/69
[2021-08-21 05:03] LABS: HEMATOCRIT 39.3 % (42.0-52.0); HEMOGLOBIN 13.1 gm/dL (14.0-18.0); MCH 32.2 pg (26.0-34.0); MCHC 33.3 g/dL (28.0-37.0); MCV 96.6 fL (80.0-100.0); RBC 4.07 mil/uL (4.50-6.00); RDW 14.2 % (10.5-14.5); WBC 15.3 thou/uL (4.0-11.0)
[2021-08-21 05:07] LABS: PLATELET COUNT 254 thou/uL (150-400)
[2021-08-21 05:10] LABS: ALBUMIN 1.9 g/dL (3.4-5.0); CALCIUM 7.8 mg/dL (8.5-10.1); CREATININE 0.4 mg/dL (0.7-1.3); TOTAL BILIRUBIN 0.7 mg/dL (0.2-1.0); TOTAL PROTEIN 5.8 g/dL (6.4-8.2)
[2021-08-21 05:30] LABS: POTASSIUM 3.1 mmol/L (3.5-5.1)
[2021-08-21 08:15] VITALS: BP 106/70
[2021-08-21 08:45] LABS: ABSOLUTE NEUTROPHILS 12.4 thou/uL (1.4-8.2); METAMYELOCYTES 1 %
[2021-08-21 12:00] VITALS: BP 114/79
[2021-08-21 15:45] VITALS: BP 111/75
[2021-08-21 19:45] LABS: URINE BILIRUBIN NEGATIVE (Negative); URINE BLOOD NEGATIVE (Negative); URINE CLARITY CLEAR; URINE COLOR YELLOW; URINE GLUCOSE-RANDOM* NEGATIVE (Negative); URINE KETONES NEGATIVE (Negative); URINE LEUKOCYTES-REFLEX NEGATIVE (Negative); URINE NITRITE-REFLEX NEGATIVE (Negative); URINE PROTEIN (DIPSTICK) NEGATIVE (Negative); URINE UROBILINOGEN 0.2 E.U./dl (0.2-1.0)
[2021-08-21 19:50] VITALS: BP 102/66
--- NOTE | 2021-08-22 02:42 | NUR ---
PT IS AWAKE AT TIMES. LUNGS ARE COARSE. PT HAS A TRACH SHIELD AT 35 PERCENT O2 SATURATION IS 99-100 PERCENT. NO RESP DISTRESS NOTED. MOM WAS AT BEDSIDE EARLIER WITH VISITING HOURS. SHE IS HIS SHIP YARD ELECTRICAL PERSON. ABDOMEN IS ROUND BOWEL SOUNDS HYPOACTIVE. TOLERATING TUBE FEEDING. CONDOM CATH TREE URINE NOTED. PT ON ANTIBIOICS ORDERED. NO PAIN NOTED. ONGOING NURSING CARE GIVEN NEEDED.
[2021-08-22 04:57] VITALS: BP 122/77
[2021-08-22 05:50] LABS: MCH 31.3 pg (26.0-34.0); MCHC 32.5 g/dL (28.0-37.0); MCV 96.2 fL (80.0-100.0); PLATELET COUNT 293 thou/uL (150-400); RBC 3.85 mil/uL (4.50-6.00); RDW 14.4 % (10.5-14.5); WBC 17.4 thou/uL (4.0-11.0)
[2021-08-22 06:42] LABS: ALBUMIN 1.9 g/dL (3.4-5.0); CALCIUM 7.9 mg/dL (8.5-10.1); CREATININE 0.4 mg/dL (0.7-1.3); POTASSIUM 3.6 mmol/L (3.5-5.1); TOTAL BILIRUBIN 0.7 mg/dL (0.2-1.0); TOTAL PROTEIN 5.9 g/dL (6.4-8.2)
[2021-08-22 08:14] VITALS: BP 118/79
[2021-08-22 08:55] LABS: ABSOLUTE NEUTROPHILS 10.4 thou/uL (1.4-8.2); ANISOCYTOSIS SLIGHT; METAMYELOCYTES 1 %; MYELOCYTES 1 %
[2021-08-22 11:05] VITALS: BP 139/97
[2021-08-22 12:06] VITALS: BP 119/78
[2021-08-22 15:14] VITALS: BP 120/79
--- NOTE | 2021-08-22 16:18 | NUR ---
JONNY faxed clinical info to [facility] for review. Spoke with Miguel Ángel in intake to provide update. Pt requiring vent at . Pt's mother prefers pt return with when medically stable. Pt to be observed over the next 48 hours. JONNY is following to assist as needed with discharge planning.
--- NOTE | 2021-08-22 17:26 | NUR ---
CONTINUE Q 2 HOUR TURN AND CLEAN PATIENT. CONTINUE WITH CURRENT CARE AND UPDATE PT'S MOTHER AT BEDSIDE.
[2021-08-22 21:52] VITALS: BP 107/72
--- NOTE | 2021-08-23 02:55 | NUR ---
PT IS ALERT. REMAINS ON BIPAP AT 30 PERCENT WITH TRACH 8 SHILEY. NO RESP DISTRESS NOTED SATURATION IS 99 PERCENT. SUCTION FREQUENT FROTHY WHITE SECREATIONS NOTED. TOLERATING TUBE FEEDING AT GOAL RATE WITH FLUSHES. CONDOM CATH ON PT TREE. PT ON IV ANTIBIOTICS AND GIVEN ORDERED ON THE MAR SCHEDULED. ONGOING NURSING CARE ON THE UNIT AT THIS TIME.
[2021-08-23 04:24] VITALS: BP 111/78
[2021-08-23 09:00] VITALS: BP 126/89
--- NOTE | 2021-08-23 10:41 | NUR ---
0740 Attempted Trach shield. SPO2 76% on 35% trach shield. Suctioned bloody secretions. 0742 returned to V60. Resp 14 SPO2 96%
--- NOTE | 2021-08-23 10:45 | NUR ---
0740 Attempted trach shield. SPO2 76% Suctioned bloody secretions. 0742 placed pt back on V60. resp 14 SPO2 96%
--- NOTE | 2021-08-23 11:35 | NUR ---
No weekend dc anticipated. Pt's mother Tamiko updated. She has lots of questions for the attending, ID and Pulm. Messages sent to physicians to give her a call. She is not able to be at bedside today. The pt currently does not have o2 or IVP at home. He has suction and humidified air per Taj. [facility] infusion and [facility] are being updated. She does not want LTAC referral and prefers to get him home once stable. Support provided. Will follow.
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
[2021-08-23 12:00] VITALS: BP 124/78
[2021-08-23 14:02] LABS: CALCIUM 8.3 mg/dL (8.5-10.1); CREATININE 0.5 mg/dL (0.7-1.3); POTASSIUM 4.7 mmol/L (3.5-5.1)
[2021-08-23 16:10] VITALS: BP 133/72
--- NOTE | 2021-08-23 18:26 | NUR ---
MEHNAZ JEAN-BAPTISTE REMOVED THIS MONRNING AT 1000, REMAINED OFF THIS SHIFT TEMPERATURE MAINTAINED 97.1-97.5F. TFS CONTINUED. VSS. TRANSITIONED TO TRACH SHIELD AT 40% SINCE THIS AFETNOON PER RT. >2L URINE OUT VIA CONDOM CATHETER. BATH GIVEN THIS SHIFT. NO OTHER CHANGES.
[2021-08-23 19:50] VITALS: BP 134/90
[2021-08-24 03:50] VITALS: BP 134/83
[2021-08-24 06:27] LABS: HEMOGLOBIN 11.9 gm/dL (14.0-18.0); MCH 31.4 pg (26.0-34.0); MCHC 32.9 g/dL (28.0-37.0); MCV 95.3 fL (80.0-100.0); PLATELET COUNT 337 thou/uL (150-400); RBC 3.78 mil/uL (4.50-6.00); RDW 14.1 % (10.5-14.5); WBC 20.6 thou/uL (4.0-11.0)
[2021-08-24 06:48] LABS: ALBUMIN 2.2 g/dL (3.4-5.0); CALCIUM 8.4 mg/dL (8.5-10.1); CREATININE 0.4 mg/dL (0.7-1.3); POTASSIUM 3.8 mmol/L (3.5-5.1); TOTAL BILIRUBIN 0.9 mg/dL (0.2-1.0); TOTAL PROTEIN 6.6 g/dL (6.4-8.2)
[2021-08-24 09:30] VITALS: BP 124/83
[2021-08-24 10:13] LABS: ANISOCYTOSIS SLIGHT
[2021-08-24 12:00] VITALS: BP 115/83
[2021-08-24 16:00] VITALS: BP 110/70
[2021-08-24 18:56] VITALS: BP 124/84
[2021-08-25 04:24] VITALS: BP 131/92
[2021-08-25 04:57] LABS: HEMATOCRIT 34.1 % (42.0-52.0); HEMOGLOBIN 11.3 gm/dL (14.0-18.0); MCH 31.9 pg (26.0-34.0); MCV 96.5 fL (80.0-100.0); RBC 3.53 mil/uL (4.50-6.00); WBC 17.9 thou/uL (4.0-11.0)
[2021-08-25 05:18] LABS: ALBUMIN 2.2 g/dL (3.4-5.0); CALCIUM 8.3 mg/dL (8.5-10.1); CREATININE 0.3 mg/dL (0.7-1.3); DIRECT BILIRUBIN 0.3 mg/dL (<0.1-0.2); POTASSIUM 3.9 mmol/L (3.5-5.1); TOTAL BILIRUBIN 0.8 mg/dL (0.2-1.0); TOTAL PROTEIN 6.6 g/dL (6.4-8.2)
[2021-08-25 08:32] VITALS: BP 132/81
[2021-08-25 12:48] VITALS: BP 149/103
[2021-08-25 16:03] VITALS: BP 149/92
--- NOTE | 2021-08-25 19:49 | NUR ---
SPOKE WITH PT'S MOTHER SHE REQUESTED NOT TO TURN PT OR PLACE ON PILLOWS. PT REMAINS TO HAVE A TWITCH OF THE EYE LIDS THROUGHOT THE SHIFT. NO BM THIS SHIFT. 2050ML CATHETER OUTPUT.
[2021-08-25 19:50] VITALS: BP 111/75
[2021-08-26 04:49] VITALS: BP 118/81
[2021-08-26 08:03] VITALS: BP 132/85
[2021-08-26 12:13] VITALS: BP 134/82
[2021-08-26 16:23] VITALS: BP 125/70
--- NOTE | 2021-08-26 17:20 | NUR ---
Discussion of patient to dc home with volar system machine. spoke with [facility] [phone]. Who reports they need prescription completed.Fax scrpt and clinical to for review and auth. Updated [facility] today with clinical information. Sp with mother of patient and gave some information on [facility] volar system. Casemgt following.
--- NOTE | 2021-08-26 18:11 | NUR ---
FARZAD JEAN-BAPTISTE REMOVED THIS AM. PT BODY TEMPERATURE REMAINED STABLE THROUGHOUT. NO BM TODAY. PT'S MOTHER ARRIVED LATE IN THE DAY AND IS CURRENTLY AT BEDSIDE.
--- NOTE | 2021-08-26 18:13 | NUR ---
PT HAD DIALYSIS THIS AM WITH 3.1L TAKEN OFF. PT WENT HAD A PERMANENT DIALYSIS CATHETER PLACED THIS AFTERNOON. NO BM TODAY.
[2021-08-26 20:03] VITALS: BP 117/72
[2021-08-27 03:50] VITALS: BP 106/73
[2021-08-27 08:18] VITALS: BP 109/73
[2021-08-27 09:01] LABS: HEMATOCRIT 35.7 % (42.0-52.0); HEMOGLOBIN 11.5 gm/dL (14.0-18.0); MCH 31.6 pg (26.0-34.0); MCHC 32.3 g/dL (28.0-37.0); MCV 97.7 fL (80.0-100.0); RBC 3.65 mil/uL (4.50-6.00); RDW 14.3 % (10.5-14.5)
[2021-08-27 09:17] LABS: ALBUMIN 2.5 g/dL (3.4-5.0); CALCIUM 8.6 mg/dL (8.5-10.1); CREATININE 0.4 mg/dL (0.7-1.3); MAGNESIUM 2.1 mg/dL (1.8-2.4); POTASSIUM 3.7 mmol/L (3.5-5.1); TOTAL BILIRUBIN 0.8 mg/dL (0.2-1.0); TOTAL PROTEIN 7.3 g/dL (6.4-8.2)
[2021-08-27 11:40] LABS: URINE BILIRUBIN NEGATIVE (Negative); URINE BLOOD TRACE (Negative); URINE CLARITY CLEAR; URINE COLOR YELLOW; URINE GLUCOSE-RANDOM* NEGATIVE (Negative); URINE KETONES NEGATIVE (Negative); URINE LEUKOCYTES-REFLEX TRACE (Negative); URINE NITRITE-REFLEX NEGATIVE (Negative); URINE PROTEIN (DIPSTICK) TRACE (Negative); URINE UROBILINOGEN 0.2 E.U./dl (0.2-1.0)
[2021-08-27 12:27] VITALS: BP 116/72
[2021-08-27 17:45] VITALS: BP 112/68
--- NOTE | 2021-08-27 18:50 | NUR ---
PT IS NON VERBAL QUADRIPELIGIC. VSS, AFEBRILE, SR ON THE MONITOR. PT HAS DIFFICULTY MAINTAINING TEMPERATURE AND HAS YANELI HUGGER IN ROOM; WAS ABLE TO GAIN TEMP WITHOUT USE OF YANELI THROUGH OUT THE DAY AT 97.8. UNABLE TO ASSESS FOR PAIN, HOWEVER PT IS EDEMATOUS AND CAN RESPOND TO SOME PAINFUL STIMULI WITH MOANING. TUBE FEEDING JEVITY 1.5 AT 40ML/HR. FLUSHES REDUCED TO 200ML Q6 TO REDUCE EDEMA. POC IS TO CONTINUE ABX, CONTACT DR MIRANDA TO REDUCE FLUIDS. FALL PRECAUTIONS IN PLACE. NO CONCERNS AT THIS TIME.
[2021-08-27 19:50] VITALS: BP 115/80
--- NOTE | 2021-08-28 02:18 | NUR ---
PT IS A/O X1 AND IS ON BEDREST. VSS. AFEBRILE. MEDICATIONS GIVEN PER JAN. GALLEGOS IN PLACE DRAINING APPROPRIATELY. RUFUS WITH 3+ EDEMA. ARM IS FIRM WITH BRUISING NOTED AT THE AXILLA. PUT IN PROTOCOL ORDER FOR IV TEAM TO ASSESS FOR PATENCY. PERIPHERAL IV STARTED TO RIGHT ARM TO CONTINUE IV MEDICATIONS. BOTH ARMS ELEVATED ON PILLOWS. WEEPING NOTED TO BILAT LE. ZGUARD APPLIED TO BOTTOM AND GROIN. PEG TUBE IN PLACE WITH JEVITY 1.5 INFUSING AT PRESCRIBED RATE. FALL PRECAUTIONS IN PLACE, CALL LIGHT IS WITHIN REACH.
[2021-08-28 04:19] VITALS: BP 132/88
[2021-08-28 08:18] VITALS: BP 119/77
[2021-08-28 09:28] LABS: HEMATOCRIT 36.9 % (42.0-52.0); MCH 31.6 pg (26.0-34.0); MCHC 32.6 g/dL (28.0-37.0); MCV 97.1 fL (80.0-100.0); PLATELET COUNT 368 thou/uL (150-400); RDW 14.3 % (10.5-14.5); WBC 22.8 thou/uL (4.0-11.0)
--- NOTE | 2021-08-28 10:18 | NUR ---
VAT SPOKE WITH DR MIRANDA REGARDING PT'S LIMITED ACCESS DUE TO EDEMA, SUGGESTED PORT PLACEMENT SINCE PT HAS BEEN ADMITTED FREQUENTLY. DR MIRANDA VERBALIZED AGREEMENT AND WILL ORDER PLACEMENT
[2021-08-28 13:35] LABS: ABSOLUTE NEUTROPHILS 18.5 thou/uL (1.4-8.2); MYELOCYTES 1 %
[2021-08-28 15:33] VITALS: BP 123/83
[2021-08-28 15:35] LABS: ALBUMIN 2.5 g/dL (3.4-5.0); CREATININE 0.3 mg/dL (0.7-1.3); MAGNESIUM 2.1 mg/dL (1.8-2.4); TOTAL BILIRUBIN 0.9 mg/dL (0.2-1.0); TOTAL PROTEIN 6.6 g/dL (6.4-8.2)
[2021-08-28 15:37] LABS: POTASSIUM 5.2 mmol/L (3.5-5.1)
--- NOTE | 2021-08-28 16:26 | NUR ---
Spoke with Dr Echavarria who has prescription for valor device. He plans to complete and update casemgt.
[2021-08-28 19:25] VITALS: BP 130/78
--- NOTE | 2021-08-28 19:48 | NUR ---
PT IS NONVERBAL QUADRAPELIGIC, CAN REACT TO STIMULI, PAINFUL STIMULI. VSS, AFEBRILE, SR ON THE MONITOR. PT HAS GENERALIZED EDEMA, WITH SOME WEEPING ON LEFT LEG. PT HAS PEG TUBE, WITH JEVITY 1.5 AT 40ML, WITH 200ML FLUSHES Q6. PT TOLERATING TUBE FEEDING WITH BENEPROTEIN AND MEDS IN PEG TUBE. PT MOTHER AT THE BEDSIDE; CONDOM CATH CHANGED BY MOTHER. DR MIRANDA CONSULTED; RECOMMENDATION FOR PORTACATH FROM RN AND IV TEAM. POC TO PLACE PORTACATH ON 08/29. CONSENT SIGNED BY MOTHER AND IN THE CHART. FALL PRECAUTIONS IN PLACE. FREQUENT ROUNDING.
[2021-08-29 05:23] VITALS: BP 122/79
[2021-08-29 06:06] LABS: HEMATOCRIT 31.6 % (42.0-52.0); HEMOGLOBIN 10.6 gm/dL (14.0-18.0); MCH 32.6 pg (26.0-34.0); MCHC 33.6 g/dL (28.0-37.0); MCV 96.9 fL (80.0-100.0); RBC 3.26 mil/uL (4.50-6.00); RDW 14.5 % (10.5-14.5)
[2021-08-29 06:46] LABS: ALBUMIN 2.4 g/dL (3.4-5.0); CALCIUM 8.5 mg/dL (8.5-10.1); CREATININE 0.3 mg/dL (0.7-1.3); MAGNESIUM 2.1 mg/dL (1.8-2.4); TOTAL PROTEIN 7.1 g/dL (6.4-8.2)
[2021-08-29 06:50] LABS: POTASSIUM 3.5 mmol/L (3.5-5.1)
[2021-08-29 08:09] VITALS: BP 139/85
[2021-08-29 11:14] VITALS: BP 114/81
[2021-08-29 15:02] VITALS: BP 120/85
[2021-08-30 05:11] VITALS: BP 130/83
[2021-08-30 07:21] LABS: HEMATOCRIT 34.2 % (42.0-52.0); HEMOGLOBIN 11.2 gm/dL (14.0-18.0); MCH 31.8 pg (26.0-34.0); MCHC 32.9 g/dL (28.0-37.0); MCV 96.9 fL (80.0-100.0); RBC 3.53 mil/uL (4.50-6.00); RDW 14.8 % (10.5-14.5); WBC 20.3 thou/uL (4.0-11.0)
[2021-08-30 07:54] LABS: ALBUMIN 2.5 g/dL (3.4-5.0); CALCIUM 8.8 mg/dL (8.5-10.1); CREATININE 0.4 mg/dL (0.7-1.3); POTASSIUM 3.6 mmol/L (3.5-5.1); TOTAL PROTEIN 7.4 g/dL (6.4-8.2)
[2021-08-30 08:35] VITALS: BP 126/82
--- NOTE | 2021-08-30 11:17 | NUR ---
Dr. Espinoza granted permission to access [facility]. Relayed message on to nurse Perez.
[2021-08-30 12:42] VITALS: BP 119/81
--- NOTE | 2021-08-30 14:28 | NUR ---
No weekend dc anticipated. Pt's wbc continue to rise. Mom has not been in yet today. Message left for [facility] to confirm if they have all needed script and clinical for home IVP setup (per pulm). Will follow.
[2021-08-30 16:35] VITALS: BP 116/77
[2021-08-30 23:41] VITALS: BP 116/77
[2021-08-31 03:40] VITALS: BP 114/80
--- NOTE | 2021-08-31 06:40 | NUR ---
PT'S MOM AT HIS BEDSIDE AT SHIF CHANGE.PT AWAKE,NONVERBAL.GEN EDEMA NOTED LL OVER.SKIN DISCOLORATION TO HIS HIP.TRCH MANAGE BY RT.NO S/S OF PAIN NOTED THIS SHIFT.PORTHA CATH FLUSHING WELL.FALL AND ISOLATION PREACUTION MAINTAINED.
[2021-08-31 06:42] LABS: HEMATOCRIT 31.3 % (42.0-52.0); HEMOGLOBIN 10.5 gm/dL (14.0-18.0); MCH 32.3 pg (26.0-34.0); MCHC 33.7 g/dL (28.0-37.0); RBC 3.26 mil/uL (4.50-6.00); RDW 14.5 % (10.5-14.5); WBC 14.3 thou/uL (4.0-11.0)
[2021-08-31 06:55] LABS: ALBUMIN 2.3 g/dL (3.4-5.0); CALCIUM 8.5 mg/dL (8.5-10.1); CREATININE 0.4 mg/dL (0.7-1.3); MAGNESIUM 1.9 mg/dL (1.8-2.4); POTASSIUM 3.1 mmol/L (3.5-5.1); TOTAL PROTEIN 7.1 g/dL (6.4-8.2)
[2021-08-31 07:59] VITALS: BP 120/82
--- NOTE | 2021-08-31 09:25 | NUR ---
Assumed care of pt this AM. Pt unresponsive, quadraplegic. Pt on T-Tube 35% FIO2. Condom cath in place & patent. ST on the monitor. Jevity 1.5 40mL/ hr which is goal. Started IV K+ per MAR for low K+ level. Will continue to assess pt needs throughout shift.
[2021-08-31 09:28] VITALS: BP 120/82
[2021-08-31 11:47] VITALS: BP 116/76
[2021-08-31 15:33] VITALS: BP 101/66
[2021-08-31 19:50] VITALS: BP 103/68
[2021-09-01 03:30] VITALS: BP 101/69
[2021-09-01 05:43] LABS: HEMATOCRIT 29.8 % (42.0-52.0); HEMOGLOBIN 9.8 gm/dL (14.0-18.0); MCHC 32.8 g/dL (28.0-37.0); MCV 97.4 fL (80.0-100.0); RBC 3.06 mil/uL (4.50-6.00); RDW 14.3 % (10.5-14.5); WBC 12.3 thou/uL (4.0-11.0)
[2021-09-01 05:56] LABS: ALBUMIN 2.2 g/dL (3.4-5.0); ANION GAP < 0 mmol/L (7-16); BUN 17 mg/dL (7-18); CALCIUM 8.4 mg/dL (8.5-10.1); CHLORIDE 97 mmol/L (98-107); CO2 39 mmol/L (21-32); CREATININE 0.3 mg/dL (0.7-1.3); GLUCOSE 140 mg/dL (74-106); MAGNESIUM 1.8 mg/dL (1.8-2.4); POTASSIUM 3.2 mmol/L (3.5-5.1); SGOT 53 U/L (15-37); SGPT 75 U/L (30-65); SODIUM 135 mmol/L (136-145); TOTAL PROTEIN 6.7 g/dL (6.4-8.2)
[2021-09-01 07:50] VITALS: BP 122/81
[2021-09-01 12:03] VITALS: BP 118/77
[2021-09-01 15:46] VITALS: BP 128/80
[2021-09-01 19:50] VITALS: BP 121/69
[2021-09-02 03:40] VITALS: BP 104/71
--- NOTE | 2021-09-02 05:11 | NUR ---
RECEIVED PATIENT AT 1900H, PATIENT IS NON VERBAL, QUADRIPLEGIC,RESPONDS TO PAINFUL STIMULI.WITH PORTACATH INTACT.WITH PEG TUBE WITH ONGOING JEVITY 1.5 AT 40 MLS/HR AND WATER FLUSH 250MLS EVERY 6 HOURS.FEEDING IS WELL TOLERATED.FREQUENT ROUNDS DONE.FALL PREVENTION MEASURES MAINTAINED.ALL NEEDS ATTENDED.
[2021-09-02 06:31] LABS: HEMATOCRIT 30.4 % (42.0-52.0); HEMOGLOBIN 9.9 gm/dL (14.0-18.0); MCH 31.4 pg (26.0-34.0); MCHC 32.6 g/dL (28.0-37.0); MCV 96.4 fL (80.0-100.0); RBC 3.15 mil/uL (4.50-6.00); RDW 14.7 % (10.5-14.5); WBC 11.3 thou/uL (4.0-11.0)
[2021-09-02 06:50] LABS: CALCIUM 8.4 mg/dL (8.5-10.1); CREATININE 0.4 mg/dL (0.7-1.3)
[2021-09-02 07:09] LABS: POTASSIUM 2.7 mmol/L (3.5-5.1)
[2021-09-02 09:27] VITALS: BP 112/75
[2021-09-02 13:24] VITALS: BP 107/67
[2021-09-02 16:00] VITALS: BP 111/69
--- NOTE | 2021-09-02 18:39 | NUR ---
Spoke with [facility] they did not rec clinical. Faxed clinical information. Reports could take a couple of days for auth for [place]. Spoke with Dr guevara who reports of to return home without device and cont to work on auth. spoke with [facility] faxed clinical and updated mom possible dc in am. Mom reports she expects 2 devices in home a Bipap and Nebulizer VPT. Sp with Dr Guevara who clarified volora device can be both nebulizer and vibration of chest for assisting with secretions. He reports to casemgt that patient likely needs a trilogy for home use. Updated mom need to attempt to obtain device in am.
[2021-09-02 19:27] VITALS: BP 114/81
[2021-09-03 05:16] VITALS: BP 97/62
[2021-09-03 05:36] LABS: HEMATOCRIT 29.6 % (42.0-52.0); HEMOGLOBIN 9.9 gm/dL (14.0-18.0); MCH 32.1 pg (26.0-34.0); MCHC 33.3 g/dL (28.0-37.0); MCV 96.3 fL (80.0-100.0); RBC 3.08 mil/uL (4.50-6.00); RDW 14.3 % (10.5-14.5); WBC 9.1 thou/uL (4.0-11.0)
[2021-09-03 05:53] LABS: PLATELET COUNT 319 thou/uL (150-400)
[2021-09-03 07:17] LABS: ABSOLUTE NEUTROPHILS 5.2 thou/uL (1.4-8.2); ANISOCYTOSIS 1+; LARGE PLATELETS FEW; METAMYELOCYTES 1 %; PLATELET ESTIMATE NORMAL; POIKILOCYTOSIS 1+; POLYCHROMASIA 1+
[2021-09-03 08:45] LABS: CALCIUM 8.6 mg/dL (8.5-10.1); CREATININE 0.4 mg/dL (0.7-1.3); MAGNESIUM 1.7 mg/dL (1.8-2.4)
[2021-09-03 08:58] VITALS: BP 131/82
[2021-09-03 12:20] VITALS: BP 119/71
[2021-09-03 16:35] VITALS: BP 126/74
--- NOTE | 2021-09-03 17:30 | NUR ---
Spoke with [facility] and sent clinical information for use of trilogy. They forwarded clinical to [facility]. [facility] reports Trilogy 100 has been recalled. They have a KongZhongal or [employer] product. Sp with Cele who has [facility] product. inquired with Dr Dawkins who is agreeable with [employer] product. cont to obtain Astral for home use.
--- NOTE | 2021-09-03 18:17 | NUR ---
PT IS A QUADRAPELGIC, NON VERBAL. VSS TEMP AROUND 99.0 YANELI HUGGER TURNED OFF. SR/SINUS TACH ON THE MONITOR. K[facility] REPLACEMENT IVPB THROUGH OUT DAY. DISCHARGED DELAYED DUE TO NEW ABT FOR PSEUDOMONAS IN SPUTUM. CONTINUE WITH POC; MEDICATION THERAPY. POSSIBLE DC HOME TOMORROW. FALL PRECAUTIONS IN PLACE.
[2021-09-03 20:00] VITALS: BP 113/63
--- NOTE | 2021-09-04 02:53 | NUR ---
PT IS ALERT AND AWAKE. LUNGS ARE COARSE. TOLERATING TUBE FEEDINGS. 2 PLUS EDEMA NOTED GENERALIZED. PROFO BOOOTS ON BILAERAL. TRACH SHIELD TO 30 PERCENT OXYGEN. MOM REQUEST PT NOT TO BE TURNED DURING THE NIGHT WITH CARE. PT SLEEPING. IN BETWEEN NURSING CARE ON THE UNIT. IN ISOLATION WITH CARE AT THIS TIME AND TREATEMENTS
[2021-09-04 05:13] VITALS: BP 114/75
[2021-09-04 08:07] VITALS: BP 120/81
[2021-09-04 11:45] VITALS: BP 116/74
--- NOTE | 2021-09-04 14:37 | NUR ---
Spoke with Benny at [facility] alerted want Astral product for patient in home setting. She plans to fax prescription form for patient to [facility] fax.
[2021-09-04 15:43] VITALS: BP 115/76
[2021-09-04 15:52] LABS: HEMATOCRIT 28.9 % (42.0-52.0); HEMOGLOBIN 9.5 gm/dL (14.0-18.0); MCH 31.7 pg (26.0-34.0); MCHC 32.7 g/dL (28.0-37.0); MCV 96.9 fL (80.0-100.0); RBC 2.98 mil/uL (4.50-6.00); RDW 14.6 % (10.5-14.5); WBC 7.4 thou/uL (4.0-11.0)
[2021-09-04 16:10] LABS: CALCIUM 7.9 mg/dL (8.5-10.1); CREATININE 0.3 mg/dL (0.7-1.3); MAGNESIUM 1.8 mg/dL (1.8-2.4); POTASSIUM 3.3 mmol/L (3.5-5.1)
--- NOTE | 2021-09-04 17:38 | NUR ---
spoke with mother updated on process with [facility] and [facility]. Awaiting for prescription from [facility]. Tobamycin inhalation [facility] for dc. Dr Dawkins reports patient can dc home while cont to work on process of valora and Astral product.
[2021-09-04 20:27] VITALS: BP 152/86
[2021-09-05] VITALS (8 sets, daily range): BP systolic 111–125; BP diastolic 70–81
[2021-09-05 05:31] LABS: HEMATOCRIT 31.2 % (42.0-52.0); HEMOGLOBIN 10.2 gm/dL (14.0-18.0); MCH 31.8 pg (26.0-34.0); MCHC 32.6 g/dL (28.0-37.0); MCV 97.7 fL (80.0-100.0); RBC 3.2 mil/uL (4.50-6.00); RDW 14.7 % (10.5-14.5); WBC 7.2 thou/uL (4.0-11.0)
[2021-09-05 05:45] LABS: CALCIUM 8.5 mg/dL (8.5-10.1); CREATININE 0.4 mg/dL (0.7-1.3); MAGNESIUM 1.8 mg/dL (1.8-2.4)
[2021-09-05] MEDS ORDERED: TOBI 300 M300 MG/5 M INH (11:26)
[2021-09-05] MEDS ORDERED: CEFDINIR300 MG PO (11:27)
[2021-09-05] MEDS ORDERED: FLAGYL500 M1 PER TUBE (11:27)
[2021-09-05] MEDS ORDERED: LEVETIRACE100 MG/1 M PER TUBE (11:31)
[2021-09-05] MEDS ORDERED: VIMPAT50 MG PO (11:33)
[2021-09-05] MEDS ORDERED: LYRICA 50 MG50 MG PO (11:36)
[2021-09-05] MEDS ORDERED: POTASSIUM CHLO20 MEQ PO (11:39)
[2021-09-05] MEDS ORDERED: MAGOX 400400 MG PO (11:40)
[2021-09-05] MEDS ORDERED: FLORINEF ACETA0.1 MG PO (11:40)
--- NOTE | 2021-09-05 16:13 | NUR ---
Pt dcing home today with hh per [facility]. Orders faxed and confirmed with [facility]. No iv atb at this time. [facility] faxed script for Astral (trilogy) setup and order that setup can be done after dc from the hospital. They have been intouch with the pt's mother and scheduled training for tomorrow afternoon. Cele working on auth for IVP and their liason has been updated the pt's mother as well. [facility] arranged for 7pm transport to allow for iv potassium infusion this afternoon. Pt to continue his normal enteral feedings and mom has food and supplies in place at home. Keagan inhalation script [facility] at [facility] and given to the unit RN Majo to lock up in the medroom fridge till pt's mom comes up this afternoon. Pt's mom is aware that it does need to be refridgerated and she will take it home personally. It was covered at 100% by pt's insurance plan. Care team updated along with pt's mother.
[2021-09-05 16:29] LABS: CALCIUM 8.1 mg/dL (8.5-10.1); CREATININE 0.4 mg/dL (0.7-1.3); MAGNESIUM 1.7 mg/dL (1.8-2.4); POTASSIUM 3.9 mmol/L (3.5-5.1)
--- NOTE | 2021-09-06 00:26 | NUR ---
ASSUMED CARE OF PT AT 1900. PRIOR TO BEING PICKED UP BY [facility] GOT PT CLEANED UP, DEACCESSED PORT AFTER HEPARIN FLUSH AND DRESSED, DISCONNECTED FROM TUBE FEED, AND WAS GIVEN TX AND SUCTIONING PER RT. COORDINATED DC WITH [facility]AM, LET FAMILY KNOW PT WAS ON THE WAY.
== END 2021-09-05 19:59 | disposition home health service (06) | DRG 871 ==
LOC: ER 05:31 → EROBS 08:11 → 2N 08:11
PROVIDERS: Emergency Medicine; Hospitalist; Internal Medicine; Internal Medicine Hematology & Oncology; Nurse Practitioner Family; Pediatrics; Psychiatry & Neurology Neurology; Specialist; ADMIT Internal Medicine; ATTEND Internal Medicine
DX: A41.9 Sepsis, unspecified organism (principal); J18.9 Pneumonia, unspecified organism; J96.21 Acute and chronic respiratory failure with hypoxia; R53.2 Functional quadriplegia; G93.1 Anoxic brain damage, not elsewhere classified; N39.0 Urinary tract infection, site not specified; K56.7 Ileus, unspecified; E44.1 Mild protein-calorie malnutrition; E27.40 Unspecified adrenocortical insufficiency; G93.40 Encephalopathy, unspecified; E87.1 Hypo-osmolality and hyponatremia; Z88.0 Allergy status to penicillin; Z88.2 Allergy status to sulfonamides; Z88.8 Allergy status to other drugs, medicaments and biological substances; B96.5 Pseudomonas (aeruginosa) (mallei) (pseudomallei) as the cause of diseases classified elsewhere; E80.6 Other disorders of bilirubin metabolism; Z79.899 Other long term (current) drug therapy; Z90.49 Acquired absence of other specified parts of digestive tract; Z91.040 Latex allergy status; Z87.440 Personal history of urinary (tract) infections; R74.01 Elevation of levels of liver transaminase levels; E87.6 Hypokalemia; E83.42 Hypomagnesemia; G40.909 Epilepsy, unspecified, not intractable, without status epilepticus; K21.9 Gastro-esophageal reflux disease without esophagitis; Z20.822 Contact with and (suspected) exposure to COVID-19; Z45.2 Encounter for adjustment and management of vascular access device; K29.70 Gastritis, unspecified, without bleeding; G93.89 Other specified disorders of brain; Z93.0 Tracheostomy status
CPT/HCPCS: 10081; 10194; 50010; 50101; 50386; 50403; 51938; 54118; 56524; 56525; 56526; 62110; 62900; 70005